=== PATIENT | female | born 1970 | race Caucasian/White ===

== ENCOUNTER 2019-05-22 18:01 | Emergency (ER) | payer BC ==
[2019-05-22 18:16] VITALS: BP 158/82; PULSE 78; RESP 20; TEMP 98.4
[2019-05-22] MEDS ORDERED: diphenhydrAMINE 50 MG/ML 1 ML VIAL IM STA (18:54)
[2019-05-22] MEDS ORDERED: methylPREDNISolone SOD SUCCI 125 MG/2 ML VIAL IM ONE (18:54)
--- NOTE | 2019-05-22 19:04 | ED ---
Skin/Abscess/FB HPI - General Chief complaint: Skin/Abscess/Foreign Body Stated complaint: Rash Time Seen by Provider: 05/22/19 18:24 Source: patient Mode of arrival: ambulatory Limitations: no limitations - History of Present Illness Initial comments: Patient is a 49-year-old female presenting to the emergency Department with complaints of a generalized rash that started yesterday. Patient states she noticed a rash start on her back and has progressed to her trunk, upper extremities and beginning on her lower extremities. Patient states she went to her PCP earlier today and received a steroid injection and was given a prescription for steroids to start tomorrow. Patient states she also took some Benadryl earlier this morning without relief of symptoms. Patient states she has been on losartan for years however this last refill, 3 days ago, was from a different senior litigation paralegal. This is the only thing that has different in the last few days. Patient was told to stop the medication until they can get reorder from a different senior litigation paralegal. Patient denies any new lotions, soaps, detergents. Patient has no other complaints at this time. Patient denies fever, chills, abdominal pain, chest pain, shortness of breath. Upon arrival to ER, vital signs are stable. - Related Data Allergies Allergy/AdvReac Type Severity Reaction Status Date / Time No Known Allergies Allergy Verified 05/22/19 18:16 Review of Systems ROS Statement: Those systems with pertinent positive or pertinent negative responses have been documented in the HPI. ROS Other: All systems not noted in ROS Statement are negative. Past Medical History Past Medical History: GERD/Reflux, Hyperlipidemia, Hypertension, Thyroid Disorder Additional Past Medical History / Comment(s): IBS History of Any Multi-Drug Resistant Organisms: None Reported Past Surgical History: Ablation, Section, Cholecystectomy Past Psychological History: No Psychological Hx Reported Smoking Status: Never smoker Past Alcohol Use History: Rare Past Drug Use History: None Reported General Exam - General Exam Comments Initial Comments: GENERAL: Well-appearing, well-nourished and in no acute distress. HEAD: Atraumatic, normocephalic. EYES: Pupils equal round and reactive to light, extraocular movements intact, sclera anicteric, conjunctiva are normal. ENT: TMs normal, nares patent, oropharynx clear without exudates. Moist mucous membranes. NECK: Normal range of motion, supple without lymphadenopathy or JVD. LUNGS: Breath sounds clear to auscultation bilaterally and equal. No wheezes rales or rhonchi. HEART: Regular rate and rhythm without murmurs, rubs or gallops. ABDOMEN: Soft, nontender, normoactive bowel sounds. No guarding, no rebound. No masses appreciated. : Deferred EXTREMITIES: Normal range of motion, no pitting or edema. No clubbing or cyanosis. NEUROLOGICAL: Cranial nerves II through XII grossly intact. Normal speech, normal gait. PSYCH: Normal mood, normal affect. SKIN: Warm, Dry, normal turgor. Patient has a generalized macular papular erythematous rash to her trunk and upper extremities, also beginning on her upper lower extremities. Consistent with an ALLERGIC response. Limitations: no limitations Course Vital Signs 05/22/19 18:12 Temperature 98.4 F Pulse Rate 78 Respiratory 20 Rate Blood Pressure 158/82 O2 Sat by Pulse 100 Oximetry Medical Decision Making - Medical Decision Making Patient is a 49-year-old female presenting with a generalized macular papular rash on her trunk and upper extremities. This is consistent with an ALLERGIC response to possible a different senior litigation paralegal of her losartan medication. Vitals are stable. Patient denies fever, chills, chest pain, trouble breathing. Patient will be given 125 mg solu-Medrol as well as 50 mg of Benadryl. Patient will also continue with Medrol Dosepak as prescribed by her PCP tomorrow. Patient has DC'd medication. Patient will follow up with her PCP tomorrow as needed. Patient is stable for discharge at this time. Return parameters were discussed with the patient she verbalized understanding. Disposition Clinical Impression: Allergic reaction to drug Disposition: HOME SELF-CARE Condition: Stable Instructions (If sedation given, give patient instructions): Acute Rash (ED) Additional Instructions: Please return to the Emergency Department if symptoms worsen or any other concerns. Start Steroid Dosepak tomorrow as discussed. Follow up with PCP if symptoms persist after 2-3 days. Is patient prescribed a controlled substance at d/c from ED?: No Referrals: Pina Lee DO [Primary Care Provider] - 1-2 days
== END 2019-05-22 19:31 | disposition home or self-care (01) ==
LOC: EC 18:01
DX: R21 Rash and other nonspecific skin eruption (principal); T46.5X5A Adverse effect of other antihypertensive drugs, initial encounter
CPT/HCPCS: 99282; 96372 ×2; J1200; J2930

== ENCOUNTER → 2021-01-19 | Outpatient (CLI) | payer BC ==
[2021-01-19 14:28] VITALS: BP 144/86; PULSE 89; RESP 18; TEMP 97.1; BMI 40.2
--- NOTE | 2021-01-27 12:35 | P.HPBAR ---
Bariatric H&P - History & Physicial H&P Date: 01/19/21 History & Physicial: Visit/CC: initial visit Patient initial contact: Initial weight: Initial weight in pounds: Height: 5 ft 3.5 in Initial BMI: Last weight: Current weight: 104.78 kg Current weight in pounds: 231.00 Current BMI: 40.2 [place] body weight (based on NIH guidelines): 53.297 kg Excess body weight loss: The patient is a 50 year-old F who presents for Bariatric Assessment. Patient presents today for sleeve gastrectomy consultation. She is morbidly obese. Her BMI is 40. She has had lifetime problems obesity. Patient developed severe comorbidities related to morbid obesity. Past Medical History Past Medical History: Diabetes Mellitus, GERD/Reflux, Hyperlipidemia, Hypertension, Thyroid Disorder Additional Past Medical History / Comment(s): DM II. IBS. overactive bladder. History of Any Multi-Drug Resistant Organisms: None Reported Past Surgical History: Ablation, Section, Cholecystectomy, Tubal Ligation, Uterine Ablation Additional Past Surgical History / Comment(s): 2007 - US needle core left breast biopsy, benign fibroid cyst. 2020 - lasik eye surgery. 2020 - US guided left breast biopsy, benign fibroid cyst. Past Anesthesia/Blood Transfusion Reactions: No Reported Reaction Past Psychological History: No Psychological Hx Reported Smoking Status: Never smoker Past Alcohol Use History: Rare Past Drug Use History: None Reported Surgical - Exam Vital Signs Temp Pulse Resp BP 97.1 F L 89 18 144/86 01/19/21 14:17 01/19/21 14:17 01/19/21 14:17 01/19/21 14:17 - General well developed, well nourished, no distress - Eyes PERRL - ENT normal pinna - Neck no masses - Respiratory normal expansion - Cardiovascular Rhythm: regular - Abdomen Abdomen: soft, non tender Bariatric Assessment & Plan Plan: Morbid obesity. Patient will undergo workup for sleeve yesterday. She is scheduled for EGD. Patient is an excellent understanding of the gastric sleeve. She'll wear the risk of gastric staple line disruption, bleeding and scarring. Bariatric Checklist Checklist: Plan: Checklist: EGD: 1. Hiatal hernia: 2. H. Pylori: HgbA1c: Vitamin D: Smoking: Never smoker Primary care physician referral: SHABANA Hernandez Psychiatry clearance: Cardiology clearance: Sleep study: Diet journal: VTE risk score: VTE risk level: Rehab needs at discharge:
== END ==
LOC: BARWHC3 13:53
PROVIDERS: ATTEND Surgery
DX: E66.01 Morbid (severe) obesity due to excess calories (principal); E11.9 Type 2 diabetes mellitus without complications; E78.5 Hyperlipidemia, unspecified; I10 Essential (primary) hypertension; Z68.41 Body mass index [BMI] 40.0-44.9, adult
CPT/HCPCS: 93005; 99203

== ENCOUNTER 2021-04-23 06:50 | Day surgery (SDC) | payer BC ==
[2021-04-21 16:05] VITALS: BMI 41.1
[~2021-04-23 06:50] MED LIST: LACTATED RINGERS 1,000 ML IV SCH
[2021-04-23 07:18] VITALS: TEMP 98.5
[2021-04-23] MEDS ORDERED: LIDOCAINE 1% (10MG/ML) FOR IV START INTRADERMA ONE (07:24)
[2021-04-23] MEDS ORDERED: PROPOFOL 10 MG/ML 20 ML VIAL IV ONE (08:03)
--- NOTE | 2021-04-23 08:06 | P.GSHP ---
History of Present Illness H&P Date: 04/23/21 Chief Complaint: GERDMorbid obesity This a 49-year-old female for sleeve gastrectomy. Patient's had issues with GERD. She is morbidly obese. Her BMI is 41. Past Medical History Past Medical History: Diabetes Mellitus, GERD/Reflux, Hyperlipidemia, Hypertension, Thyroid Disorder Additional Past Medical History / Comment(s): DM II. IBS. overactive bladder. History of Any Multi-Drug Resistant Organisms: None Reported Past Surgical History: Breast Surgery, Section, Cholecystectomy, Tubal Ligation, Uterine Ablation Additional Past Surgical History / Comment(s): 2007 - US needle core left breast biopsy, benign fibroid cyst. 2020 - lasik eye surgery. 2020 - US guided left breast biopsy, benign fibroid cyst. Past Anesthesia/Blood Transfusion Reactions: No Reported Reaction Smoking Status: Never smoker - Past Family History Mother Family Medical History: No Reported History Medications and Allergies Home Medications Medication Instructions Recorded Confirmed Type Atorvastatin [Lipitor] 40 mg PO HS 01/19/21 04/23/21 History Colestipol HCl [Colestid] 1 tab PO DAILY 01/19/21 04/23/21 History Furosemide [Lasix] 20 mg PO DAILY 01/19/21 04/23/21 History Levothyroxine Sodium [Synthroid] 50 mcg PO DAILY 01/19/21 04/23/21 History Liothyronine Sodium [Cytomel] 25 mcg PO DAILY 01/19/21 04/23/21 History Metoprolol Succinate [Toprol XL] 200 mg PO BID 01/19/21 04/23/21 History Omeprazole [PriLOSEC] 20 mg PO AC-BRKFST 01/19/21 04/23/21 History Potassium Chloride [Klor-Con 20] 20 meq PO DAILY 01/19/21 04/23/21 History Semaglutide [Rybelsus] 7 mg PO DAILY 01/19/21 04/23/21 History Valsartan/Hydrochlorothiazide 1 tab PO DAILY 01/19/21 04/23/21 History [Diovan Hct 160-25 mg Tablet] amLODIPine [Norvasc] 5 mg PO HS 01/19/21 04/23/21 History Cholecalciferol (Vitamin D3) 125 mcg PO DAILY 04/21/21 04/23/21 History [Vitamin D3 (3000 Iu)] Multivitamins, Thera [Multivitamin 1 tab PO DAILY 04/21/21 04/23/21 History (formulary)] Allergies Allergy/AdvReac Type Severity Reaction Status Date / Time No Known Allergies Allergy Verified 04/21/21 15:30 Surgical - Exam Vital Signs Temp Pulse Resp BP Pulse Ox 98.5 F 90 16 161/78 97 04/23/21 07:14 04/23/21 07:14 04/23/21 07:14 04/23/21 07:14 04/23/21 07:14 - General well developed, well nourished, no distress - Eyes PERRL - ENT normal pinna - Neck no masses - Respiratory normal expansion - Cardiovascular Rhythm: regular - Abdomen Abdomen: soft, non tender Assessment and Plan Assessment: GERD, morbid obesity. We'll perform EGD.
--- NOTE | 2021-04-23 08:13 | P.OP ---
Date of Procedure: 04/23/21 Preoperative Diagnosis: GERD Morbid obesity Postoperative Diagnosis: Antral gastritis Procedure(s) Performed: EGD Anesthesia: MAC Surgeon: Marino Womack Pathology: other (Antrum) Condition: stable Disposition: PACU Description of Procedure: Patient's placed on the endoscopy table lateral position. She received IV sedation. The gastroscope placed oropharynx passed in the esophagus and stomach. Scope was then placed through the pylorus. First and second portion of the duodenum appeared normal. Scope summer back the antrum this. Mildly inflamed. A biopsies performed. Scope was unretroflexed and remainder stomach appeared normal. The GE junction was at 40 cm the distal esophagus appeared n ormal. The proximal esophagus appeared normal. Scope withdrawn for patient.
[2021-04-23 08:35] VITALS: BP 127/76; PULSE 84; RESP 18
== END 2021-04-23 08:56 | disposition home or self-care (01) ==
LOC: ORWHC2ENDO 06:50
PROVIDERS: ATTEND Surgery
DX: K29.50 Unspecified chronic gastritis without bleeding (principal); K58.9 Irritable bowel syndrome, unspecified; K21.9 Gastro-esophageal reflux disease without esophagitis; I10 Essential (primary) hypertension; E78.5 Hyperlipidemia, unspecified; E11.9 Type 2 diabetes mellitus without complications; E66.01 Morbid (severe) obesity due to excess calories; Z68.41 Body mass index [BMI] 40.0-44.9, adult; Z90.49 Acquired absence of other specified parts of digestive tract; Z79.899 Other long term (current) drug therapy
CPT/HCPCS: 43239; 81025; 88305; J2704

== ENCOUNTER → 2021-05-11 | Outpatient (CLI) | payer BC ==
[2021-05-11 15:37] VITALS: BP 135/82; PULSE 87; TEMP 98.2; BMI 40.8
--- NOTE | 2021-05-11 15:52 | P.HPBAR ---
Bariatric H&P - History & Physicial H&P Date: 05/11/21 History & Physicial: Visit/CC: egd follow up Patient initial contact: Initial weight: Initial weight in pounds: Height: 5 ft 3.5 in Initial BMI: Last weight: Current weight: 106.141 kg Current weight in pounds: 234.00 Current BMI: 40.8 [place] body weight (based on NIH guidelines): 53.297 kg Excess body weight loss: The patient is a 51 year-old F who presents for Bariatric Assessment. Patient presents today for presurgical consultation. She wants to be scheduled for sleeve visit in August. She is Understanding significant history. Her BMI is 41. Past Medical History Past Medical History: Diabetes Mellitus, GERD/Reflux, Hyperlipidemia, Hypertension, Thyroid Disorder Additional Past Medical History / Comment(s): DM II. IBS. overactive bladder. History of Any Multi-Drug Resistant Organisms: None Reported Past Surgical History: Breast Surgery, Section, Cholecystectomy, Tubal Ligation, Uterine Ablation Additional Past Surgical History / Comment(s): 2007 - US needle core left breast biopsy, benign fibroid cyst. 2020 - lasik eye surgery. 2020 - US guided left br east biopsy, benign fibroid cyst. Past Anesthesia/Blood Transfusion Reactions: No Reported Reaction Past Psychological History: No Psychological Hx Reported Smoking Status: Never smoker Past Alcohol Use History: Rare Past Drug Use History: None Reported - Past Family History Mother Family Medical History: No Reported History Surgical - Exam Vital Signs Temp Pulse BP 98.2 F 87 135/82 05/11/21 15:35 05/11/21 15:35 05/11/21 15:35 - General well developed, well nourished, no distress - Eyes PERRL - ENT normal pinna - Neck no masses - Respiratory normal expansion - Cardiovascular Rhythm: regular - Abdomen Abdomen: soft, non tender Bariatric Assessment & Plan Plan: Morbid obesity. Patient will be scheduled for sleeve gastrectomy in August. She has an excellent understanding of procedure. Bariatric Checklist Checklist: Plan: Checklist: EGD: 1. Hiatal hernia: 2. H. Pylori: HgbA1c: Vitamin D: Smoking: Never smoker Primary care physician referral: SHABANA Hernandez Psychiatry clearance: Cardiology clearance: Sleep study: Diet journal: VTE risk score: VTE risk level: Rehab needs at discharge:
== END ==
LOC: BARWHC3 14:53
PROVIDERS: ATTEND Surgery
DX: E66.01 Morbid (severe) obesity due to excess calories (principal); Z68.41 Body mass index [BMI] 40.0-44.9, adult; E11.9 Type 2 diabetes mellitus without complications; E78.5 Hyperlipidemia, unspecified; I10 Essential (primary) hypertension; Z79.899 Other long term (current) drug therapy; Z79.84 Long term (current) use of oral hypoglycemic drugs
CPT/HCPCS: 99211

== ENCOUNTER → 2021-05-25 | Outpatient (CLI) | payer BC ==
[2021-05-25 12:36] VITALS: BMI 41.6
== END ==
LOC: BARWHC3 08:40
PROVIDERS: ATTEND Surgery
DX: E66.01 Morbid (severe) obesity due to excess calories (principal); Z71.3 Dietary counseling and surveillance; Z68.41 Body mass index [BMI] 40.0-44.9, adult
CPT/HCPCS: 97804

== ENCOUNTER → 2021-07-27 | Outpatient (CLI) | payer BC ==
[2021-07-27 13:35] VITALS: BP 137/86; PULSE 69; TEMP 97.8; BMI 41.3
--- NOTE | 2021-07-27 14:57 | P.HPBAR ---
Bariatric H&P - History & Physicial H&P Date: 07/27/21 History & Physicial: Visit/CC: presurgical visit Patient initial contact: Initial weight: Initial weight in pounds: Height: 5 ft 3.5 in Initial BMI: Last weight: Current weight: 107.501 kg Current weight in pounds: 237.00 Current BMI: 41.3 [place] body weight (based on NIH guidelines): 53.297 kg Excess body weight loss: The patient is a 51 year-old F who presents for Bariatric Assessment. Patient presents today for presurgical consultation. She appears scheduled for surgery next month. She is morbidly obese. Her BMI is 41. Past Medical History Past Medical History: Diabetes Mellitus, GERD/Reflux, Hyperlipidemia, Hypertension, Thyroid Disorder Additional Past Medical History / Comment(s): DM II. IBS. overactive bladder. History of Any Multi-Drug Resistant Organisms: None Reported Past Surgical History: Breast Surgery, Section, Cholecystectomy, Tubal Ligation, Uterine Ablation Additional Past Surgical History / Comment(s): 2007 - US needle core left breast biopsy, benign fibroid cyst. 2020 - lasik eye surgery. 2020 - US guided left breast biopsy, benign fibroid cyst. Past Anesthesia/Blood Transfusion Reactions: No Reported Reaction Past Psychological History: No Psychological Hx Reported Smoking Status: Never smoker Past Alcohol Use History: Rare Past Drug Use History: None Reported - Past Family History Mother Family Medical History: No Reported History Surgical - Exam Vital Signs Temp Pulse BP 97.8 F 69 137/86 07/27/21 13:33 07/27/21 13:33 07/27/21 13:33 - General well developed, well nourished, no distress - Eyes PERRL - ENT normal pinna - Neck no masses - Respiratory normal expansion - Cardiovascular Rhythm: regular - Abdomen Abdomen: soft, non tender Bariatric Assessment & Plan Plan: Morbid obesity, BMI of 41. Patient is an excellent understanding of sleeve yesterday. She was scheduled for sleeve gastrectomy next month. We will over the risks and Patient procedure again. Bariatric Checklist Checklist: Plan: Checklist: EGD: 1. Hiatal hernia: 2. H. Pylori: HgbA1c: Vitamin D: Smoking: Never smoker Primary care physician referral: SHABANA Hernandez Psychiatry clearance: Cardiology clearance: Sleep study: Diet journal: VTE risk score: VTE risk level: Rehab needs at discharge:
== END ==
LOC: BARWHC3 12:55
PROVIDERS: ATTEND Surgery
DX: E66.01 Morbid (severe) obesity due to excess calories (principal); E11.9 Type 2 diabetes mellitus without complications; E78.5 Hyperlipidemia, unspecified; I10 Essential (primary) hypertension; Z68.41 Body mass index [BMI] 40.0-44.9, adult
CPT/HCPCS: 99211

== ENCOUNTER 2021-08-31 07:26 | Inpatient (IN) | payer BC ==
[~2021-08-31 07:26] MED LIST changes: +DEXAMETHASONE SOD PHOSPHATE 4 MG/ML 1 ML VIAL IV ONE; +ENOXAPARIN 40 MG/0.4 ML SYRINGE SQ PRN; -LACTATED RINGERS 1,000 ML IV SCH; +MIDAZOLAM 2 MG/2 ML VIAL IV PRN; +ONDANSETRON 4 MG/2 ML VIAL IVP ONE; +SCOPOLAMINE 1.5MG/72HR PATCH TRANSDERM ONE
[2021-08-31] MEDS ORDERED: LACTATED RINGERS 1,000 ML IV ONE ×2 (08:04→10:14)
[2021-08-31 08:06] LABS: Glucose,Whole Blood 120 mg/dL (75-99)
[2021-08-31] MEDS ORDERED: ONDANSETRON 4 MG/2 ML VIAL IVP ONE ×2 (08:07→11:34)
[2021-08-31] MEDS ORDERED: DEXAMETHASONE SOD PHOSPHATE 4 MG/ML 1 ML VIAL IVP ONE (08:08)
[2021-08-31] MEDS ORDERED: SCOPOLAMINE 1.5MG/72HR PATCH TRANSDERM ONE (08:09)
--- NOTE | 2021-08-31 08:42 | P.GSHP ---
History of Present Illness H&P Date: 08/31/21 Chief Complaint: Morbid obesity BMI 40 This is a 51-year-old female presents today for laparoscopic sleeve gastrectomy. Patient understands risks and benefits of the procedure. He is aware the risks and possible conversion to the open procedure and injury to the stomach liver or spleen. She is also a risk of gastric sleeve perforation, bleeding and scarring. Past Medical History Past Medical History: Diabetes Mellitus, GERD/Reflux, Hyperlipidemia, Hypertension, Thyroid Disorder Additional Past Medical History / Comment(s): DM II. IBS. overactive bladder. History of Any Multi-Drug Resistant Organisms: None Reported Past Surgical History: Breast Surgery, Section, Cholecystectomy, Tubal Ligation, Uterine Ablation Additional Past Surgical History / Comment(s): 2007 - US needle core left breast biopsy, benign fibroid cyst. 2020 - lasik eye surgery. 2020 - US guided left breast biopsy, benign fibroid cyst. Past Anesthesia/Blood Transfusion Reactions: No Reported Reaction Smoking Status: Never smoker - Past Family History Mother Family Medical History: No Reported History Medications and Allergies Home Medications Medication Instructions Recorded Confirmed Type Atorvastatin [Lipitor] 40 mg PO HS 01/19/21 08/31/21 History Colestipol HCl [Colestid] 1 gm PO DAILY 01/19/21 08/31/21 History Furosemide [Lasix] 20 mg PO DAILY PRN 01/19/21 08/31/21 History Liothyronine Sodium [Cytomel] 25 mcg PO DAILY 01/19/21 08/31/21 History Metoprolol Succinate [Toprol XL] 200 mg PO BID 01/19/21 08/31/21 History Omeprazole [PriLOSEC] 20 mg PO AC-BRKFST 01/19/21 08/31/21 History Potassium Chloride [Klor-Con 20] 20 meq PO DAILY 01/19/21 08/31/21 History Semaglutide [Rybelsus] 7 mg PO DAILY 01/19/21 08/31/21 History Valsartan/Hydrochlorothiazide 1 tab PO DAILY 01/19/21 08/31/21 History [Diovan Hct 160-25 mg Tablet] amLODIPine [Norvasc] 5 mg PO HS 01/19/21 08/31/21 History Cholecalciferol (Vitamin D3) 125 mcg PO DAILY 04/21/21 08/31/21 History [Vitamin D3 (3000 Iu)] Multivitamins, Thera [Multivitamin 1 tab PO DAILY 04/21/21 08/31/21 History (formulary)] Allergies Allergy/AdvReac Type Severity Reaction Status Date / Time No Known Allergies Allergy Verified 08/21/21 08:43 Surgical - Exam Vital Signs Temp Pulse Resp BP Pulse Ox 97.7 F 77 16 151/77 99 08/31/21 07:51 08/31/21 07:51 08/31/21 07:51 08/31/21 07:51 08/31/21 07:51 - General well developed, well nourished, no distress - Eyes PERRL - ENT normal pinna - Neck no masses - Respiratory normal expansion - Cardiovascular Rhythm: regular - Abdomen Abdomen: soft, non tender Results - Labs Abnormal Lab Results - Last 24 Hours (Table) 08/31/21 Range/Units 08:02 POC Glucose (mg/dL) 120 H (75-99) mg/dL Assessment and Plan Assessment: Morbid obesity. We'll perform sleeve gastrectomy.
[2021-08-31] MEDS ORDERED: fentaNYL (PF) 50 MCG/ML 2 ML AMP ONE (08:51)
[2021-08-31] MEDS ORDERED: ROCURONIUM 10 MG/ML (5 ML VIAL) IV ONE (08:51)
[2021-08-31] MEDS ORDERED: NEOSTIGMINE 1 MG/ML 10 ML VIAL ONE (08:51)
[2021-08-31] MEDS ORDERED: PROPOFOL 10 MG/ML 20 ML VIAL IV ONE (08:51)
[2021-08-31] MEDS ORDERED: KETOROLAC 15 MG/ML 1 ML VIAL ONE (08:51)
[2021-08-31] MEDS ORDERED: KETAMINE 10 MG/ML 20 ML VIAL ONE (08:51)
[2021-08-31] MEDS ORDERED: LIDOCAINE 1% INJ 10MG/ML (20 ML MDV) ONE (08:51)
[2021-08-31] MEDS ORDERED: MIDAZOLAM 2 MG/2 ML VIAL ONE (08:51)
[2021-08-31] MEDS ORDERED: GLYCOPYRROLATE 0.2 MG/ML 2 ML VIAL ONE (08:51)
[2021-08-31] MEDS ORDERED: SUCCINYLCHOLINE CHLORIDE 100 MG/5 ML SYR IV ONE (08:51)
[2021-08-31] MEDS ORDERED: ePHEDrine 50 MG/ML 1 ML AMP ONE (08:51)
[2021-08-31] MEDS ORDERED: BUPIVACAIN-EPI 0.25%-1:200,000 30 ML VIAL SQ ONE (09:20)
[2021-08-31] MEDS ORDERED: HYDROcodone/APAP 15 ML SOLUTION PO PRN (10:32)
[2021-08-31] MEDS ORDERED: HYDROmorphone 1 MG/ML 1 ML SYRINGE IVP PRN (10:32)
[2021-08-31] MEDS ORDERED: NALOXONE 0.4 MG/ML 1 ML VIAL IV PRN (10:32)
--- NOTE | 2021-08-31 10:32 | P.OP ---
Date of Procedure: 08/31/21 Preoperative Diagnosis: Morbid obesity, BMI 40 Postoperative Diagnosis: Same Procedure(s) Performed: Laparoscopic sleeve gastrectomy Anesthesia: THANH Surgeon: Marino Womack Estimated Blood Loss (ml): 25 Pathology: other (Stomach) Condition: stable Disposition: PACU Description of Procedure: The patient was placed on the operating room table in the supine position. She received general anesthesia and then was placed in dorsal lithotomy position. Her abdomen was prepped and draped in sterile fashion. The skin incision sites were anesthetized 1% local Xylocaine. And then the skin was incised with an 11 blade in the left lateral position. Using a blade less trocar under direct visualization the peritoneal cavity was entered. The abdomen was insufflated and then a 5 mm laparoscope was placed into the peritoneal cavity. A 5 mm trocar was placed in the right epigastric, and right lateral position. A 15 mm trocar was placed in the supra-umbilical position and another 5 mm trocar was placed in the left lateral position. The left lateral lobe of the liver was retracted. The stomach was visualized. The greater curvature of the stomach was then dissected using the Harmonic scissors. The dissection occurred approximately 5 cm from the pylorus to the level of the left astrid. There was no hiatal hernia seen. At this point a 40-Citizen [place] bougie dilator was placed the oropharynx and passed into the esophagus and into the stomach by the ASSISTANT BRANCH MANAGER. The sleeve gastrectomy was performed by using the powered echelon stapler with a seam guard buttress material. Sequential firings of the stapler were performed. The gastric remnant was then brought out through the 15 mm trocar site. The dilator was withdrawn. And a orogastric tube was replaced into the stomach. The stomach was insufflated with 200 mL of methylene blue normal saline. There was no evidence of extravasation. The abdomen was irrigated there is no bleeding seen. The Jb-[place] device was used to close the 15 mm trocar with 0 Vicryl. Skin was closed with interrupted 3-0 Monocryl sutures once the trochars withdrawn. Dermabond dressing was applied. Patient was sent to recovery in stable condition.
[2021-08-31] MEDS: HYDROmorphone 0.5 MG/0.5 ML SYRINGE IVP PRN ×4 (10:58→15:00)
[2021-08-31 11:23] LABS: Glucose,Whole Blood 186 mg/dL (75-99)
[2021-08-31] MEDS ORDERED: INSULIN ASPART (NovoLOG) 100 UNIT/ML VIAL SQ ONE (11:26)
[2021-08-31] MEDS ORDERED: SODIUM CHLORIDE 0.9% 1,000 ML IV ONE (16:18)
[2021-08-31 17:28] LABS: Glucose,Whole Blood 123 mg/dL (75-99)
[2021-08-31] MEDS: ALBUTEROL NEBULIZED 2.5 MG/3 ML INHALATION SCH ×2 (17:48→21:39)
[2021-08-31] MEDS: LACTATED RINGERS 1,000 ML IV SCH (18:29)
[2021-08-31] MEDS: KETOROLAC 30 MG/ML 1 ML VIAL IVP SCH ×2 (18:37→23:59)
[2021-08-31 19:37] LABS: Glucose,Whole Blood 112 mg/dL (75-99)
[2021-08-31] MEDS: 0.9% NACL WITH KCL 20 MEQ/L 1,000 ML IV SCH (21:06)
[2021-09-01] MEDS: 0.9% NACL WITH KCL 20 MEQ/L 1,000 ML IV SCH ×2 (01:41→09:30)
[2021-09-01] MEDS: LACTATED RINGERS 1,000 ML IV SCH (06:01)
[2021-09-01] MEDS: KETOROLAC 30 MG/ML 1 ML VIAL IVP SCH ×4 (06:05→22:54)
[2021-09-01] MEDS: ALBUTEROL NEBULIZED 2.5 MG/3 ML INHALATION SCH ×4 (08:36→20:32)
--- NOTE | 2021-09-01 08:57 | FL ---
EXAMINATION TYPE: FL UGI DATE OF EXAM: 09/01/2021 LIMITED UGI: CLINICAL HISTORY: Morbid Obesity, gastric sleeve surgery yesterday. TECHNIQUE: Limited UGI-esophagram is performed utilizing 50 oz of Isovue-370. A total of 1 minute 32 seconds of fluoroscopic time was utilized during procedure and 38 images obtained. COMPARISON: None. FINDINGS: The patient swallowed contrast without difficulty or delay. Esophageal peristalsis and mo tility are within normal limits. There is good flow of contrast across the diaphragmatic hiatus into proximal stomach and subsequent mild delay in flow through proximal anastomosis into gastric sleeve. There is then moderate to borderline severe delay in flow from distal sleeve and anastomosis into py lorus and duodenal sweep. There is constant reflux of contrast from gastric sleeve and proximal stoma ch back into esophagus where there is persistent air-fluid level. Patient has symptoms of nausea and occasional pain but no vomiting. There is no evidence of contrast extravasation to suggest leak. Chol ecystectomy clips are incidentally noted from remote surgery. Tiny amount of free air below right hem idiaphragm is seen. IMPRESSION: No evidence of leak. Moderate obstruction at distal anastomosis. Took approximately 8 min utes from drinking until contrast passed through distal anastomosis.
[2021-09-01] MEDS: METOPROLOL SUCCINATE (ER) 100 MG TAB.ER.24H PO SCH ×2 (09:30→19:58)
[2021-09-01] MEDS: PANTOPRAZOLE 40 MG/10 ML VIAL IV SCH (09:30)
[2021-09-01] MEDS: ENOXAPARIN 40 MG/0.4 ML SYRINGE SQ SCH (09:31)
[2021-09-01] MEDS: LIOTHYRONINE SODIUM 5 MCG TAB PO SCH (09:32)
[2021-09-01 09:55] LABS: Anion Gap 13.7 mmol/L (10.00-18.00); Carbon Dioxide 24.3 mmol/L (20.0-27.5); Potassium 3.2 mmol/L (3.5-5.5)
[2021-09-01 10:28] LABS: African American GFR (CKD) 123.2 (60.0-200.0); Calcium 8.6 mg/dL (8.7-10.3); Non-African American GFR(CKD) 106.3 (60.0-200.0); Phosphorus 2.4 mg/dL (2.4-5.1)
[2021-09-01 11:19] LABS: Basophils # (A) 0.04 X 10*3/uL (0.00-0.10); Basophils % (A) 0.4 %; Eosinophils # (A) 0.01 X 10*3/uL (0.04-0.35); Eosinophils % (A) 0.1 %; HCT 35.1 % (37.2-46.3); HGB 11.3 g/dL (12.0-15.0); Lymphocytes # (A) 1.68 X 10*3/uL (0.90-5.00); Lymphocytes % (A) 17.2 %; MCH 28.5 pg (27.0-32.0); MCHC 32.2 g/dL (32.0-37.0); MCV 88.4 fL (80.0-97.0); Mean Platelet Volume 13.5 fL (9.5-12.2); Monocytes # (A) 0.83 X 10*3/uL (0.20-1.00); Monocytes % (A) 8.5 %; Neutrophils # (A) 7.16 X 10*3/uL (1.80-7.70); Neutrophils % (A) 73.5 %; Platelet Count 232 X 10*3/uL (140-440); RBC 3.97 X 10*6/uL (4.10-5.20); RDW 12.9 % (11.5-14.5); WBC 9.75 X 10*3/uL (4.50-10.00)
[2021-09-01] MEDS ORDERED: Potassium Replacement Protocol 1 EACH MISC MISCELLANE PRN (12:05)
[2021-09-01] MEDS ORDERED: Magnesium Replacement Protocol 1 EACH MISC MISCELLANE PRN (12:16)
--- NOTE | 2021-09-01 12:18 | P.CONS ---
History of Present Illness - Reason for Consult Consult date: 09/01/21 Medical management diabetes mellitus, gastroesophageal reflux disease, hype Requesting physician: Marino Womack - Chief Complaint Obesity, status post laparoscopic sleeve gastrectomy - History of Present Illness This is a 51-year-old female with past medical history of morbid obesity, diabetes mellitus type 2, gastroesophageal reflux disease, hypertension, hyperlipidemia, hypothyroidism and multiple other medical issues. Patient is status post laparoscopic sleeve gastrectomy, postop day 1. Tolerated procedure well. Complains of lower bilateral quadrant abdominal pain, radiating from left to right. Reports burping with no bowel movement, not passing flatus. He ambulated in the hallway last night, tolerated exertion well. Maintain on IV fluid hydration. NPO,completed upper GI series this morning, results pending. Blood sugars controlled. Systolic blood pressure in the low 1teens. Afebrile, normal WBC. Hemoglobin 11.3, platelets 232. Potassium 3.2 replacement supplements ordered. Review of Systems ROS Statement: Those systems with pertinent positive or pertinent negative responses have been documented in the HPI. ROS Other: All systems not noted in ROS Statement are negative. Past Medical History Past Medical History: No Reported History, Diabetes Mellitus, GERD/Reflux, Hyperlipidemia, Hypertension, Thyroid Disorder Additional Past Medical History / Comment(s): DM II. IBS. overactive bladder. History of Any Multi-Drug Resistant Organisms: None Reported Past Surgical History: Breast Surgery, Section, Cholecystectomy, Tubal Ligation, Uterine Ablation Additional Past Surgical History / Comment(s): 2007 - US needle core left breast biopsy, benign fibroid cyst. 2020 - lasik eye surgery. 2020 - US guided left breast biopsy, benign fibroid cyst. Past Anesthesia/Blood Transfusion Reactions: No Reported Reaction Past Psychological History: No Psychological Hx Reported Smoking Status: Never smoker Past Alcohol Use History: Rare Past Drug Use History: None Reported - Past Family History Mother Family Medical History: No Reported History Medications and Allergies Home Medications Medication Instructions Recorded Confirmed Type Atorvastatin [Lipitor] 40 mg PO HS 01/19/21 08/31/21 History Colestipol HCl [Colestid] 1 gm PO DAILY 01/19/21 08/31/21 History Furosemide [Lasix] 20 mg PO DAILY PRN 01/19/21 08/31/21 History Liothyronine Sodium [Cytomel] 25 mcg PO DAILY 01/19/21 08/31/21 History Metoprolol Succinate [Toprol XL] 200 mg PO BID 01/19/21 08/31/21 History Omeprazole [PriLOSEC] 20 mg PO AC-BRKFST 01/19/21 08/31/21 History Potassium Chloride [Klor-Con 20] 20 meq PO DAILY 01/19/21 08/31/21 History Semaglutide [Rybelsus] 7 mg PO DAILY 01/19/21 08/31/21 History Valsartan/Hydrochlorothiazide 1 tab PO DAILY 01/19/21 08/31/21 History [Diovan Hct 160-25 mg Tablet] amLODIPine [Norvasc] 5 mg PO HS 01/19/21 08/31/21 History Cholecalciferol (Vitamin D3) 125 mcg PO DAILY 04/21/21 08/31/21 History [Vitamin D3 (3000 Iu)] Multivitamins, Thera [Multivitamin 1 tab PO DAILY 04/21/21 08/31/21 History (formulary)] Allergies Allergy/AdvReac Type Severity Reaction Status Date / Time No Known Allergies Allergy Verified 08/21/21 08:43 Physical Exam Vitals: Vital Signs Temp Pulse Pulse Pulse Resp BP Pulse Ox 09/01/21 08:46 79 09/01/21 08:38 78 98 09/01/21 08:00 98.2 F 76 18 114/59 95 09/01/21 01:35 97.8 F 84 18 124/76 100 08/31/21 21:50 73 08/31/21 21:39 72 08/31/21 17:48 98 08/31/21 16:55 98 F 86 16 146/75 92 L 08/31/21 16:00 73 16 132/64 97 08/31/21 14:35 79 16 128/60 100 08/31/21 13:45 71 16 121/58 98 08/31/21 12:45 73 16 134/58 97 08/31/21 12:08 66 16 125/59 98 Intake and Output 08/31/21 09/01/21 09/01/21 22:59 06:59 14:59 Intake Total 800 Balance 800 Intake: IV 800 Other: # Voids 3 Weight 101.2 kg PHYSICAL EXAM: VITAL SIGNS: As above GENERAL: Sitting up in bed, no acute distress HEENT: Conjunctivae normal. eyes normal. NECK: No JVD. No thyroid enlargement. No LNs CARDIOVASCULAR: S1, S2 regular..No murmur RESPIRATION: Breath sounds diminished in the bases. No rhonchi or crackles. No bronchial breathing. ABDOMEN: Soft, mildly distended, tender- status post surgery. No guarding. LEGS: No edema. no swelling PSYCHIATRY: Alert and oriented X3, mood and affect normal. NERVOUS SYSTEM: Cranial N 2-12 grossly normal. Moves all 4 limbs.No focal defic its.Strength and sensation grossly intact. Skin: Warm and dry, no rash Results CBC & Chem 7: 09/01/21 05:50 09/01/21 05:50 Labs: Abnormal Lab Results - Last 24 Hours (Table) 08/31/21 08/31/21 09/01/21 Range/Units 17:26 19:36 05:50 RBC 3.97 L (4.10-5.20) X 10*6/uL Hgb 11.3 L (12.0-15.0) g/dL Hct 35.1 L (37.2-46.3) % MPV 13.5 H (9.5-12.2) fL Eosinophils # 0.01 L (0.04-0.35) X 10*3/uL Potassium (3.5-5.5) mmol/L POC Glucose (mg/dL) 123 H 112 H (75-99) mg/dL Calcium (8.7-10.3) mg/dL 09/01/21 Range/Units 05:50 RBC (4.10-5.20) X 10*6/uL Hgb (12.0-15.0) g/dL Hct (37.2-46.3) % MPV (9.5-12.2) fL Eosinophils # (0.04-0.35) X 10*3/uL Potassium 3.2 L (3.5-5.5) mmol/L POC Glucose (mg/dL) (75-99) mg/dL Calcium 8.6 L (8.7-10.3) mg/dL Assessment and Plan Assessment: Morbid obesity, BMI 39.5, status post laparoscopic sleeve gastrectomy Diabetes mellitus type 2 Gastroesophageal reflux disease Hypertension, currently borderline Hyperlipidemia Hypothyroidism Hypokalemia Plan: Continue on current medication regime ,monitoring and symptomatic treatment. Potassium replacement ordered, magnesium level ordered -pending with replacement protocol as ordered .Currently borderline blood pressure, beta amber resumed, but will hold amlodipine valsartan/hydrochlorothiazide with close monitoring of blood pressure. Aggressive pulmonary toileting with incentive spirometer reinforced. Thank you for the consult. The impression and plan of care has been dictated as directed. : I performed a history and examination of this patient, discussed the same with the dictator. I agree with the dictator's note ,documented as a scribe. Any additional findings or plans will be noted.
[2021-09-01 12:41] VITALS: BMI 39.5
--- NOTE | 2021-09-01 12:59 | P.PN ---
Subjective Progress Note Date: 09/01/21 CHIEF COMPLAINT: Morbid obesity HISTORY OF PRESENT ILLNESS: Status post laparoscopic sleeve gastrectomy, postop day #1. Patient's upper GI shows no evidence of leak. Moderate obstruction at distal anastomosis. Took approximately 8 minutes from drinking until contrast passed through distal anastomosis. Patient does feel that her liquids and pills are getting stuck when she swallows. She denies any nausea or vomiting. Denies any flatus. Reports her pain is controlled. Afebrile. WBC is 9.75 hemoglobin 11.3 platelets 232 sodium 140 potassium 3.2 creatinine 0.6 magnesium 2.0 PHYSICAL EXAM: VITAL SIGNS: Reviewed. GENERAL: Well-developed in no acute distress. HEENT: No sclera icterus. Extraocular movements grossly intact. Moist buccal mucosa. Head is atraumatic, normocephalic. ABDOMEN: Soft. Nondistended. Abdominal binder in place NEUROLOGIC: Alert and oriented. Cranial nerves II through XII grossly intact. ASSESSMENT: 1. Morbid obesity status post laparoscopic sleeve gastrectomy 2. Moderate obstruction noted on upper GI 3. Hypokalemia PLAN: -Start IV dexamethasone 4 mg IV every 6 for moderate obstruction -Start bariatric clear liquid diet -Replace potassium -Continue IV fluids -Continue pain medication as needed -Encourage patient to ambulate -Encourage patient to use incentive spirometer -Anticipate discharge tomorrow -GI prophylaxis Protonix and DVT prophylaxis Lovenox Physician 21 Dealer note has been reviewed by physician. Signing provider agrees with the documented findings, assessment, and plan of care. Objective - Vital Signs Vital signs: Vital Signs Temp 98.2 F 09/01/21 08:00 Pulse 79 09/01/21 08:46 Resp 18 09/01/21 08:00 BP 114/59 09/01/21 08:00 Pulse Ox 98 09/01/21 08:38 Intake & Output 08/31/21 09/01/21 09/01/21 18:59 06:59 18:59 Intake Total 1850 Output Total 10 Balance 1840 Weight 101.2 kg 101.2 kg Intake: IV 1850 Output: Estimated Blood Loss 10 Other: # Voids 3 - Labs CBC & Chem 7: 09/01/21 05:50 09/01/21 05:50 Labs: Abnormal Lab Results - Last 24 Hours (Table) 08/31/21 08/31/21 09/01/21 Range/Units 17:26 19:36 05:50 RBC 3.97 L (4.10-5.20) X 10*6/uL Hgb 11.3 L (12.0-15.0) g/dL Hct 35.1 L (37.2-46.3) % MPV 13.5 H (9.5-12.2) fL Eosinophils # 0.01 L (0.04-0.35) X 10*3/uL Potassium (3.5-5.5) mmol/L POC Glucose (mg/dL) 123 H 112 H (75-99) mg/dL Calcium (8.7-10.3) mg/dL 09/01/21 Range/Units 05:50 RBC (4.10-5.20) X 10*6/uL Hgb (12.0-15.0) g/dL Hct (37.2-46.3) % MPV (9.5-12.2) fL Eosinophils # (0.04-0.35) X 10*3/uL Potassium 3.2 L (3.5-5.5) mmol/L POC Glucose (mg/dL) (75-99) mg/dL Calcium 8.6 L (8.7-10.3) mg/dL
[2021-09-01] MEDS: DEXAMETHASONE SOD PHOSPHATE 4 MG/ML 1 ML VIAL IVP SCH ×3 (13:10→22:54)
[2021-09-01] MEDS: POTASSIUM CHLORIDE 10 MEQ in WATER FOR INJECTION 1 100ML.BAG IVPB SCH ×4 (13:11→16:36)
[2021-09-01 13:37] LABS: Glucose,Whole Blood 131 mg/dL (75-99)
[2021-09-01 17:00] LABS: Glucose,Whole Blood 127 mg/dL (75-99)
[2021-09-01 20:25] LABS: Glucose,Whole Blood 133 mg/dL (75-99)
[2021-09-01] MEDS ORDERED: ATORVASTATIN 40 MG TAB PO SCH (21:00)
[2021-09-02] MEDS: LACTATED RINGERS 1,000 ML IV SCH (00:06)
[2021-09-02 02:58] VITALS: BP 139/70; RESP 15; TEMP 97.6
[2021-09-02] MEDS: KETOROLAC 30 MG/ML 1 ML VIAL IVP SCH ×2 (05:15→11:17)
[2021-09-02] MEDS: DEXAMETHASONE SOD PHOSPHATE 4 MG/ML 1 ML VIAL IVP SCH ×2 (05:16→11:17)
[2021-09-02 07:02] LABS: Glucose,Whole Blood 126 mg/dL (75-99)
[2021-09-02] MEDS: ALBUTEROL NEBULIZED 2.5 MG/3 ML INHALATION SCH ×2 (09:36→12:16)
[2021-09-02] MEDS: METOPROLOL SUCCINATE (ER) 100 MG TAB.ER.24H PO SCH (10:10)
[2021-09-02] MEDS: ENOXAPARIN 40 MG/0.4 ML SYRINGE SQ SCH (10:10)
[2021-09-02] MEDS: LIOTHYRONINE SODIUM 5 MCG TAB PO SCH (10:10)
[2021-09-02] MEDS: PANTOPRAZOLE 40 MG/10 ML VIAL IV SCH (11:14)
[2021-09-02 11:27] LABS: African American GFR (CKD) 129.2 (60.0-200.0); Anion Gap 12.3 mmol/L (10.00-18.00); BUN/Creat Ratio 15.34 Ratio (12.00-20.00); Calcium 8.7 mg/dL (8.7-10.3); Magnesium 2.1 mg/dL (1.5-2.4); Non-African American GFR(CKD) 111.5 (60.0-200.0); Potassium 3.9 mmol/L (3.5-5.5)
[2021-09-02 11:53] LABS: Glucose,Whole Blood 126 mg/dL (75-99)
[2021-09-02 12:19] VITALS: PULSE 72
--- NOTE | 2021-09-02 12:59 | P.DS ---
Providers Date of admission: 08/31/21 07:26 Expected date of discharge: 09/02/21 Attending physician: Marino Womack Consults: 08/31/21 10:32 Consult Physician Routine Consulting Provider: Guy Macdonald Consult Reason/Comments: Medical management Do you want consulting provider notified?: Yes Primary care physician: SHABANA Ceballos Hospital Course: Discharge diagnosis 1. Morbid obesity status post laparoscopic sleeve gastrectomy 2. Moderate obstruction noted on upper GI 3. Hypokalemia resolved Hospital course This is a 51-year-old female with morbid obesity she is status post laparoscopic gastrectomy. Patient tolerated surgery well. Her pain is controlled. Her upper GI did show moderate obstruction. She was treated with IV dexamethasone. She is tolerating her bariatric clear liquid diet. She reports improvement in her swallowing. Her pain is controlled. She has been up and ambulating. She denies any difficulty with urinating. She is afebrile. Her incision sites are clean dry and intact. She is stable for discharge. Please refer to chart for any further details. Physician Control Electrician note has been reviewed by physician. Signing provider agrees with the documented findings, assessment, and plan of care. Patient Condition at Discharge: Stable Plan - Discharge Summary Discharge Rx Participant: No New Discharge Prescriptions: New Omeprazole [PriLOSEC] 40 mg PO DAILY #30 cap Ondansetron Odt [Zofran Odt] 4 mg PO Q8HR PRN #9 tab PRN Reason: Nausea bisacodyL [Dulcolax] 5 mg PO DAILY PRN #10 tab PRN Reason: Constipation Simethicone 40 mg/0.6 ml Drops [Mylicon Drops] 40 mg PO PCHS PRN #30 ml PRN Reason: Gas HYDROcodone/APAP 5-325MG [[place] 5-325] 1 tab PO Q6HR PRN 2 Days #5 tab PRN Reason: Pain Continue Potassium Chloride [Klor-Con 20] 20 meq PO DAILY Furosemide [Lasix] 20 mg PO DAILY PRN PRN Reason: Edema Colestipol HCl [Colestid] 1 gm PO DAILY Valsartan/Hydrochlorothiazide [Diovan Hct 160-25 mg Tablet] 1 tab PO DAILY Metoprolol Succinate [Toprol XL] 200 mg PO BID Atorvastatin [Lipitor] 40 mg PO HS Semaglutide [Rybelsus] 7 mg PO DAILY Liothyronine Sodium [Cytomel] 25 mcg PO DAILY amLODIPine [Norvasc] 5 mg PO HS Cholecalciferol (Vitamin D3) [Vitamin D3 (3000 Iu)] 125 mcg PO DAILY Multivitamins, Thera [Multivitamin (formulary)] 1 tab PO DAILY Discontinued Omeprazole [PriLOSEC] 20 mg PO AC-BRKFST Discharge Medication List Atorvastatin [Lipitor] 40 mg PO HS 01/19/21 [History] Colestipol HCl [Colestid] 1 gm PO DAILY 01/19/21 [History] Furosemide [Lasix] 20 mg PO DAILY PRN 01/19/21 [History] Liothyronine Sodium [Cytomel] 25 mcg PO DAILY 01/19/21 [History] Metoprolol Succinate [Toprol XL] 200 mg PO BID 01/19/21 [History] Potassium Chloride [Klor-Con 20] 20 meq PO DAILY 01/19/21 [History] Semaglutide [Rybelsus] 7 mg PO DAILY 01/19/21 [History] Valsartan/Hydrochlorothiazide [Diovan Hct 160-25 mg Tablet] 1 tab PO DAILY 01/19/21 [History] amLODIPine [Norvasc] 5 mg PO HS 01/19/21 [History] Cholecalciferol (Vitamin D3) [Vitamin D3 (3000 Iu)] 125 mcg PO DAILY 04/21/21 [History] Multivitamins, Thera [Multivitamin (formulary)] 1 tab PO DAILY 04/21/21 [History] HYDROcodone/APAP 5-325MG [[place] 5-325] 1 tab PO Q6HR PRN 2 Days #5 tab 09/02/21 [Rx] Omeprazole [PriLOSEC] 40 mg PO DAILY #30 cap 09/02/21 [Rx] Ondansetron Odt [Zofran Odt] 4 mg PO Q8HR PRN #9 tab 09/02/21 [Rx] Simethicone 40 mg/0.6 ml Drops [Mylicon Drops] 40 mg PO PCHS PRN #30 ml 09/02/21 [Rx] bisacodyL [Dulcolax] 5 mg PO DAILY PRN #10 tab 09/02/21 [Rx] Follow up Appointment(s)/Referral(s): Guy Macdonald MD [STAFF PHYSICIAN] - 09/03/21 9:15 am ([place] location. ) [facility] [place] [place] - 09/04/21 10:00 am (Nurse follow up) Patient Instructions/Handouts: *Surgery [facility] - Scopalamine Patch Instructions, Laparoscopic Sleeve Gastrectomy (DC) Activity/Diet/Wound Care/Special Instructions: No driving while taking [place] No lifting over 10 pounds You may shower. No soaking or tub baths for 2 weeks Very light activity until you are reevaluated at your follow up appointment with your surgeon Discharge Disposition: HOME SELF-CARE
--- NOTE | 2021-09-02 15:22 | P.PN ---
Subjective Progress Note Date: 09/02/21 This is a 51-year-old female with past medical history of morbid obesity, diabetes mellitus type 2, gastroesophageal reflux disease, hypertension, hyperlipidemia, hypothyroidism and multiple other medical issues. Patient is status post laparoscopic sleeve gastrectomy, postop day 1. Tolerated procedure well. Complains of lower bilateral quadrant abdominal pain, radiating from left to right. Reports burping with no bowel movement, not passing flatus. He ambulated in the hallway last night, tolerated exertion well. Maintain on IV fluid hydration. NPO,completed upper GI series this morning, results pending. Blood sugars controlled. Systolic blood pressure in the low 1teens. Afebrile, normal WBC. Hemoglobin 11.3, platelets 232. Potassium 3.2 replacement supplements ordered 09/02/2021 Upper GI reported moderate obstruction , maintained on IV dexamethasone. Reports her swallowing is improving and is tolerating her bariatric clear liquid diet.reports burping.Ambulating, tolerating exertion well. Pain controlled. Afebrile. Objective - Vital Signs Vital signs: Vital Signs Temp 97.6 F 09/02/21 01:42 Pulse 72 09/02/21 12:25 Resp 15 09/02/21 01:42 BP 139/70 09/02/21 01:42 Pulse Ox 94 L 09/02/21 01:42 Intake & Output 09/01/21 09/02/21 09/02/21 18:59 06:59 18:59 Weight 101.2 kg Other: # Voids 2 3 - Exam PHYSICAL EXAM: VITAL SIGNS: As above GENERAL: Alert and oriented 3, Sitting up in bed, no acute distress HEENT: Conjunctivae normal. eyes normal. NECK: Supple No JVD. CARDIOVASCULAR: S1, S2 regular.No murmur RESPIRATION:Breath sounds diminished in the bases. No rhonchi or crackles. ABDOMEN: Soft, mildly distended, tender- status post surgery. No guarding.+BS LEGS: No edema. no swelling NERVOUS SYSTEM:No focal deficits.Strength and sensation grossly intact. Skin: Warm and dry, no rash - Labs CBC & Chem 7: 09/01/21 05:50 09/02/21 06:24 Labs: Abnormal Lab Results - Last 24 Hours (Table) 09/01/21 09/01/21 09/02/21 Range/Units 16:59 20:23 06:24 BUN 8.0 L (9.0-27.0) mg/dL Creatinine 0.5 L (0.6-1.5) mg/dL Glucose 132 H (70-110) mg/dL POC Glucose (mg/dL) 127 H 133 H (75-99) mg/dL 09/02/21 09/02/21 Range/Units 07:00 11:53 BUN (9.0-27.0) mg/dL Creatinine (0.6-1.5) mg/dL Glucose (70-110) mg/dL POC Glucose (mg/dL) 126 H 126 H (75-99) mg/dL Assessment and Plan Assessment: Morbid obesity, BMI 39.5, status post laparoscopic sleeve gastrectomy Diabetes mellitus type 2 Gastroesophageal reflux disease Hypertension, currently borderline Hyperlipidemia Hypothyroidism Hypokalemia, resolved Plan: Continue on current medication regime ,monitoring and symptomatic treatment. Discharge planning in progress as per primary. Patient has been instructed to continue aggressive pulmonary toileting with incentive spirometer reinforced. Follow up in office on Tuesday as previously scheduled. The impression and plan of care has been dictated as directed. : I performed a history and examination of this patient, discussed the same with the dictator. I agree with the dictator's note ,documented as a scribe. Any additional findings or plans will be noted.
[2021-09-02] MEDS ORDERED: amLODIPine 5 MG TAB PO SCH (21:00)
== END 2021-09-02 14:14 | disposition home or self-care (01) | DRG 621 ==
LOC: 2ORMAIN 07:26 → EDSTATUS 07:40 → 4SSUR 15:59
PROVIDERS: ADMIT Surgery; ATTEND Surgery
PROC: 0DB64Z3 Excision of Stomach, Percutaneous Endoscopic Approach, Vertical (ICD-10-PCS; principal; 2021-08-31 08:40)
DX: E66.01 Morbid (severe) obesity due to excess calories (principal); Z68.41 Body mass index [BMI] 40.0-44.9, adult; E03.9 Hypothyroidism, unspecified; E11.9 Type 2 diabetes mellitus without complications; E78.5 Hyperlipidemia, unspecified; I10 Essential (primary) hypertension; K21.9 Gastro-esophageal reflux disease without esophagitis; E87.6 Hypokalemia; Z20.822 Contact with and (suspected) exposure to COVID-19; N32.81 Overactive bladder; K58.9 Irritable bowel syndrome, unspecified; Z79.899 Other long term (current) drug therapy; Z90.49 Acquired absence of other specified parts of digestive tract; Z98.51 Tubal ligation status
CPT/HCPCS: 74240; 80048; 80051; 81025; 82310; 82565; 83735; 84100; 84520; 85025; 87635; 88307; 94640; 94760; 94762

== ENCOUNTER → 2021-09-04 | Outpatient (CLI) | payer BC ==
[2021-09-04 11:34] VITALS: BP 135/85; PULSE 76; TEMP 98.5; BMI 39.7
== END ==
LOC: BARWHC3 09:46
PROVIDERS: ATTEND Surgery
DX: E66.01 Morbid (severe) obesity due to excess calories (principal); Z98.84 Bariatric surgery status; Z68.36 Body mass index [BMI] 36.0-36.9, adult
CPT/HCPCS: 99211

== ENCOUNTER → 2021-09-14 | Outpatient (CLI) | payer BC ==
[2021-09-14 13:17] VITALS: BP 148/89; PULSE 70; RESP 18; TEMP 97.7; BMI 37.5
--- NOTE | 2021-09-14 13:46 | P.HPBAR ---
Bariatric H&P - History & Physicial H&P Date: 09/14/21 History & Physicial: Visit/CC: follow up Patient initial contact: Initial weight: Initial weight in pounds: Height: 5 ft 3.5 in Initial BMI: Last weight: Current weight: 97.522 kg Current weight in pounds: 215.00 Current BMI: 37.5 [place] body weight (based on NIH guidelines): 53.297 kg Excess body weight loss: The patient is a 51 year-old F who presents for Bariatric Assessment. Patient presents today for bariatric follow. She's doing quite well. She denies any significant pain. She's had some mild GERD. Past Medical History Past Medical History: No Reported History, Diabetes Mellitus, GERD/Reflux, Hyperlipidemia, Hypertension, Thyroid Disorder Additional Past Medical History / Comment(s): DM II. IBS. overactive bladder. History of Any Multi-Drug Resistant Organisms: None Reported Past Surgical History: Bariatric Surgery, Breast Surgery, Section, Cholecystectomy, Tubal Ligation, Uterine Ablation Additional Past Surgical History / Comment(s): 2007 - US needle core left breast biopsy, benign fibroid cyst. 2020 - lasik eye surgery. 2020 - US guided left breast biopsy, benign fibroid cyst. 08/31/21 - sleeve. Past Anesthesia/Blood Transfusion Reactions: No Reported Reaction Past Psychological History: No Psychological Hx Reported Smoking Status: Never smoker Past Alcohol Use History: Rare Past Drug Use History: None Reported - Past Family History Mother Family Medical History: No Reported History Surgical - Exam Vital Signs Temp Pulse Resp BP 97.7 F 70 18 148/89 09/14/21 13:09 09/14/21 13:09 09/14/21 13:09 09/14/21 13:09 - General well developed, well nourished, no distress - Eyes PERRL - ENT normal pinna - Neck no masses - Respiratory normal expansion - Cardiovascular Rhythm: regular - Abdomen Abdomen: soft, non tender Bariatric Assessment & Plan Plan: Status post sleeve gastrectomy. Patient is minimal and will be observed temperature follow-up in 4 weeks. Bariatric Checklist Checklist: Plan: Checklist: EGD: 1. Hiatal hernia: 2. H. Pylori: HgbA1c: Vitamin D: Smoking: Never smoker Primary care physician referral: SHABANA Hernandez Psychiatry clearance: Cardiology clearance: Sleep study: Diet journal: VTE risk score: VTE risk level: Rehab needs at discharge:
== END ==
LOC: BARWHC3 12:36
PROVIDERS: ATTEND Surgery
DX: E66.01 Morbid (severe) obesity due to excess calories (principal); Z71.3 Dietary counseling and surveillance; E11.9 Type 2 diabetes mellitus without complications; K21.9 Gastro-esophageal reflux disease without esophagitis; E78.5 Hyperlipidemia, unspecified; I10 Essential (primary) hypertension; Z98.84 Bariatric surgery status; Z68.37 Body mass index [BMI] 37.0-37.9, adult; Z79.899 Other long term (current) drug therapy
CPT/HCPCS: 97803; 99211

== ENCOUNTER → 2021-09-28 | Outpatient (CLI) | payer BC ==
[2021-09-28 14:11] VITALS: BP 162/91; PULSE 69; RESP 18; TEMP 98.3; BMI 36.4
--- NOTE | 2021-09-28 16:03 | P.HPBAR ---
Bariatric H&P - History & Physicial H&P Date: 09/28/21 History & Physicial: Visit/CC: follow up Patient initial contact: Initial weight: Initial weight in pounds: Height: 5 ft 3.5 in Initial BMI: Last weight: Current weight: 94.801 kg Current weight in pounds: 209.00 Current BMI: 36.4 [place] body weight (based on NIH guidelines): 53.297 kg Excess body weight loss: The patient is a 51 year-old F who presents for Bariatric Assessment. Patient presents today for sleeve gastrectomy follow-up. She feels well. She's had some mild GERD. She denies any dysphagia Past Medical History Past Medical History: No Reported History, Diabetes Mellitus, GERD/Reflux, Hyperlipidemia, Hypertension, Thyroid Disorder Additional Past Medical History / Comment(s): DM II. IBS. overactive bladder. History of Any Multi-Drug Resistant Organisms: None Reported Past Surgical History: Bariatric Surgery, Breast Surgery, Section, Cholecystectomy, Tubal Ligation, Uterine Ablation Additional Past Surgical History / Comment(s): 2007 - US needle core left breast biopsy, benign fibroid cyst. 2020 - lasik eye surgery. 2020 - US guided left breast biopsy, benign fibroid cyst. 08/31/21 - sleeve. Past Anesthesia/Blood Transfusion Reactions: No Reported Reaction Past Psychological History: No Psychological Hx Reported Smoking Status: Never smoker Past Alcohol Use History: Rare Past Drug Use History: None Reported - Past Family History Mother Family Medical History: No Reported History Surgical - Exam Vital Signs Temp Pulse Resp BP 98.3 F 69 18 162/91 09/28/21 14:07 09/28/21 14:07 09/28/21 14:07 09/28/21 14:07 - General well developed, well nourished, no distress - Eyes PERRL - ENT normal pinna - Neck no masses - Respiratory normal expansion - Cardiovascular Rhythm: regular - Abdomen Abdomen: soft, non tender Bariatric Assessment & Plan Plan: Mild GERD. We'll be observed. Her morbid obesity is improving. Bariatric Checklist Checklist: Plan: Checklist: EGD: 1. Hiatal hernia: 2. H. Pylori: HgbA1c: Vitamin D: Smoking: Never smoker Primary care physician referral: SHABANA Hernandez Psychiatry clearance: Cardiology clearance: Sleep study: Diet journal: VTE risk score: VTE risk level: Rehab needs at discharge:
== END ==
LOC: BARWHC3 13:07
PROVIDERS: ATTEND Surgery
DX: E66.01 Morbid (severe) obesity due to excess calories (principal); K21.9 Gastro-esophageal reflux disease without esophagitis; E11.9 Type 2 diabetes mellitus without complications; E78.5 Hyperlipidemia, unspecified; I10 Essential (primary) hypertension; Z68.36 Body mass index [BMI] 36.0-36.9, adult; Z98.84 Bariatric surgery status
CPT/HCPCS: 99211

== ENCOUNTER → 2021-10-28 | Outpatient (CLI) | payer BC ==
--- NOTE | 2021-10-29 10:15 | NM ---
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 FINDINGS: There is normal distribution of activity throughout the gland. The 4 hour iodine uptake is calculated at 6.3% (normal range 8-14%). The 24-hour iodine uptake is calculated at 30.6% (normal ra nge 15-35%). There is homogeneous distribution radiotracer throughout the thyroid lobes without evidence for hilar , nodule at this time. IMPRESSION: 4 hour uptake is minimally diminished within normal 24-hour uptake. No evidence for hilar colon nodule at this time.
== END | disposition home or self-care (01) ==
LOC: RADNMMAIN 10-21 08:47
PROVIDERS: ATTEND Family Medicine
DX: E04.9 Nontoxic goiter, unspecified (principal)
CPT/HCPCS: 78014; A9516

== ENCOUNTER → 2021-12-21 | Outpatient (CLI) | payer BC ==
[2021-12-21 12:58] VITALS: BP 163/95; PULSE 66; TEMP 97.5; BMI 33.8
--- NOTE | 2022-03-16 12:23 | P.HPBAR ---
Bariatric H&P - History & Physicial H&P Date: 12/21/21 History & Physicial: Visit/CC: sleeve f/u Patient initial contact: Initial weight: Initial weight in pounds: Height: 5 ft 3.5 in Initial BMI: Last weight: Current weight: 87.997 kg Current weight in pounds: 194.00 Current BMI: 33.8 [place] body weight (based on NIH guidelines): 53.297 kg Excess body weight loss: The patient is a 51 year-old F who presents for Bariatric Assessment. Patient presents today for sleeve gastrectomy follow-up. She's had some minimal GERD. Her current weight is 194 pounds. She currently is 204 pounds. Past Medical History Past Medical History: No Reported History, Diabetes Mellitus, GERD/Reflux, Hyperlipidemia, Hypertension, Thyroid Disorder Additional Past Medical History / Comment(s): DM II. IBS. overactive bladder. History of Any Multi-Drug Resistant Organisms: None Reported Past Surgical History: Bariatric Surgery, Breast Surgery, Section, Cholecystectomy, Tubal Ligation, Uterine Ablation Additional Past Surgical History / Comment(s): 2007 - US needle core left breast biopsy, benign fibroid cyst. 2020 - lasik eye surgery. 2020 - US guided left breast biopsy, benign fibroid cyst. 08/31/21 - sleeve. Past Anesthesia/Blood Transfusion Reactions: No Reported Reaction Past Psychological History: No Psychological Hx Reported Smoking Status: Never smoker Past Alcohol Use History: Rare Past Drug Use History: None Reported - Past Family History Mother Family Medical History: No Reported History Surgical - Exam Vital Signs Temp Pulse BP 97.5 F L 66 163/95 12/21/21 12:56 12/21/21 12:56 12/21/21 12:56 - General well developed, well nourished, no distress - Eyes PERRL - ENT normal pinna - Neck no masses - Respiratory normal expansion - Cardiovascular Rhythm: regular - Abdomen Abdomen: soft, non tender Bariatric Assessment & Plan Plan: Resolving morbid obesity. Patient's BMI is 33. She will follow-up in 4 weeks. Her GERD is minimal will be observed. Bariatric Checklist Checklist: Plan: Checklist: EGD: 1. Hiatal hernia: 2. H. Pylori: HgbA1c: Vitamin D: Smoking: Never smoker Primary care physician referral: Cassy Fleming, [facility] Psychiatry clearance: Cardiology clearance: Sleep study: Diet journal: VTE risk score: VTE risk level: Rehab needs at discharge:
== END ==
LOC: BARWHC3 12:36
PROVIDERS: ATTEND Surgery
DX: E66.01 Morbid (severe) obesity due to excess calories (principal); E11.9 Type 2 diabetes mellitus without complications; K21.9 Gastro-esophageal reflux disease without esophagitis; E78.5 Hyperlipidemia, unspecified; I10 Essential (primary) hypertension; Z98.84 Bariatric surgery status; Z68.33 Body mass index [BMI] 33.0-33.9, adult
CPT/HCPCS: 99211

== ENCOUNTER → 2022-01-18 | Outpatient (CLI) | payer BC ==
[2022-01-18 13:07] VITALS: BP 157/93; PULSE 61; TEMP 97.7; BMI 33.3
--- NOTE | 2022-01-18 15:42 | P.HPBAR ---
Bariatric H&P - History & Physicial H&P Date: 01/18/22 History & Physicial: Visit/CC: sleeve f/u Patient initial contact: Initial weight: Initial weight in pounds: Height: 5 ft 3.5 in Initial BMI: Last weight: 191 Current weight: 86.636 kg Current weight in pounds: 191.00 Current BMI: 33.3 [place] body weight (based on NIH guidelines): 53.297 kg Excess body weight loss: The patient is a 51 year-old F who presents for Bariatric Assessment. Patient resents today for sleeve gastrectomy follow-up. She's had some mild complaints of mild GERD. Her weight is stable. She denies any significant issues. Past Medical History Past Medical History: No Reported History, Diabetes Mellitus, GERD/Reflux, Hyperlipidemia, Hypertension, Thyroid Disorder Additional Past Medical History / Comment(s): DM II. IBS. overactive bladder. History of Any Multi-Drug Resistant Organisms: None Reported Past Surgical History: Bariatric Surgery, Breast Surgery, Section, Cho lecystectomy, Tubal Ligation, Uterine Ablation Additional Past Surgical History / Comment(s): 2007 - US needle core left breast biopsy, benign fibroid cyst. 2020 - lasik eye surgery. 2020 - US guided left breast biopsy, benign fibroid cyst. 08/31/21 - sleeve. Past Anesthesia/Blood Transfusion Reactions: No Reported Reaction Past Psychological History: No Psychological Hx Reported Smoking Status: Never smoker Past Alcohol Use History: Rare Past Drug Use History: None Reported - Past Family History Mother Family Medical History: No Reported History Surgical - Exam Vital Signs Temp Pulse BP 97.7 F 61 157/93 01/18/22 13:02 01/18/22 13:02 01/18/22 13:02 - General well developed, well nourished, no distress - Eyes PERRL - ENT normal pinna, normal nares, normal mucosa - Neck no masses - Respiratory normal expansion - Cardiovascular Rhythm: regular - Abdomen Abdomen: soft, non tender Bariatric Assessment & Plan Plan: Morbid obesity slowly improving. Her GERD is minimal will be observed. Bariatric Checklist Checklist: Plan: Checklist: EGD: 1. Hiatal hernia: 2. H. Pylori: HgbA1c: Vitamin D: Smoking: Never smoker Primary care physician referral: SHABANA Hernandez Psychiatry clearance: Cardiology clearance: Sleep study: Diet journal: VTE risk score: VTE risk level: Rehab needs at discharge:
[2022-01-18 17:58] LABS: HCT 40.6 % (37.2-46.3); HGB 12.9 g/dL (12.0-15.0); MCH 28.2 pg (27.0-32.0); MCHC 31.8 g/dL (32.0-37.0); MCV 88.6 fL (80.0-97.0); Mean Platelet Volume 12.7 fL (9.5-12.2); NRBC Per 100 WBC 0 /100 WBCS (0.0-0.0); Platelet Count 274 X 10*3/uL (140-440); RBC 4.58 X 10*6/uL (4.10-5.20); RDW 12.8 % (11.5-14.5); WBC 6.11 X 10*3/uL (4.50-10.00)
[2022-01-18 18:13] LABS: % Iron Saturation 16.39 (12.00-45.00); African American GFR (CKD) 115.1 (60.0-200.0); Albumin 4.3 g/dL (3.8-4.9); Albumin/Globulin Ratio 1.44 (1.60-3.17); Anion Gap 10.8 mmol/L (10.00-18.00); BUN/Creat Ratio 17.32 Ratio (12.00-20.00); Blood Urea Nitrogen 12.3 mg/dL (9.0-27.0); Calcium 9.5 mg/dL (8.7-10.3); Carbon Dioxide 24.6 mmol/L (20.0-27.5); Ferritin 52.2 ng/mL (10.0-291.0); Magnesium 2.1 mg/dL (1.5-2.4); Non-African American GFR(CKD) 99.3 (60.0-200.0); Potassium 4.3 mmol/L (3.5-5.5); Total Bilirubin 0.4 mg/dL (0.30-1.20); Total Protein 7.2 g/dL (6.2-8.2)
[2022-01-19 12:28] LABS: Zinc, Serum 67 ug/dL (60-130)
[2022-01-20 06:16] LABS: Vitamin A 72 ug/dL (38-106)
== END ==
LOC: BARWHC3 12:47
PROVIDERS: ATTEND Surgery
DX: E66.01 Morbid (severe) obesity due to excess calories (principal); Z98.84 Bariatric surgery status; K21.9 Gastro-esophageal reflux disease without esophagitis; I10 Essential (primary) hypertension; E78.5 Hyperlipidemia, unspecified; E11.9 Type 2 diabetes mellitus without complications; Z68.33 Body mass index [BMI] 33.0-33.9, adult
CPT/HCPCS: 80053; 82306; 82607; 82728; 82746; 83540; 83550; 83735; 84255; 84425; 84443; 84590; 84630; 85027; 99211

== ENCOUNTER → 2022-03-22 | Outpatient (CLI) | payer BC ==
[2022-03-22 13:01] VITALS: BP 156/88; PULSE 71; TEMP 97.7; BMI 32.4
--- NOTE | 2022-03-22 15:35 | P.HPBAR ---
Bariatric H&P - History & Physicial H&P Date: 03/22/22 History & Physicial: Visit/CC: 6 month f/u sleeve Patient initial contact: Initial weight: Initial weight in pounds: Height: 5 ft 3.5 in Initial BMI: Last weight: Current weight: 84.368 kg Current weight in pounds: 186.00 Current BMI: 32.4 [place] body weight (based on NIH guidelines): 53.297 kg Excess body weight loss: The patient is a 51 year-old F who presents for Bariatric Assessment. Patient presents today for bariatric follow-up. She has lost another 5 pounds. She's had some minimal GERD. Past Medical History Past Medical History: No Reported History, Diabetes Mellitus, GERD/Reflux, Hyperlipidemia, Hypertension, Thyroid Disorder Additional Past Medical History / Comment(s): DM II. IBS. overactive bladder. History of Any Multi-Drug Resistant Organisms: None Reported Past Surgical History: Bariatric Surgery, Breast Surgery, Section, Cholecystectomy, Tubal Ligation, Uterine Ablation Additional Past Surgical History / Comment(s): 2007 - US needle core left breast biopsy, benign fibroid cyst. 2020 - lasik eye surgery. 2020 - US guided left breast biopsy, benign fibroid cyst. 08/31/21 - sleeve. Past Anesthesia/Blood Transfusion Reactions: No Reported Reaction Past Psychological History: No Psychological Hx Reported Smoking Status: Never smoker Past Alcohol Use History: Rare Past Drug Use History: None Reported - Past Family History Mother Family Medical History: No Reported History Surgical - Exam Vital Signs Temp Pulse BP 97.7 F 71 156/88 03/22/22 12:58 03/22/22 12:58 03/22/22 12:58 - General well developed, well nourished, no distress - Eyes PERRL - ENT normal pinna - Neck no masses - Respiratory normal expansion - Cardiovascular Rhythm: regular - Abdomen Abdomen: soft, non tender Bariatric Assessment & Plan Plan: Morbid obesity is improving. Patient's GERD is minimal will be observed. She'll follow-up in 4 weeks. Bariatric Checklist Checklist: Plan: Checklist: EGD: 1. Hiatal hernia: 2. H. Pylori: HgbA1c: Vitamin D: Smoking: Never smoker Primary care physician referral: SHABANA Hernandez Psychiatry clearance: Cardiology clearance: Sleep study: Diet journal: VTE risk score: VTE risk level: Rehab needs at discharge:
== END ==
LOC: BARWHC3 12:42
PROVIDERS: ATTEND Surgery
DX: E66.01 Morbid (severe) obesity due to excess calories (principal); K21.9 Gastro-esophageal reflux disease without esophagitis; Z68.32 Body mass index [BMI] 32.0-32.9, adult; E11.9 Type 2 diabetes mellitus without complications; Z71.3 Dietary counseling and surveillance; E78.5 Hyperlipidemia, unspecified; I10 Essential (primary) hypertension; Z98.84 Bariatric surgery status
CPT/HCPCS: 97803; 99211

== ENCOUNTER → 2022-05-24 | Outpatient (CLI) | payer BC ==
[2022-05-24 13:10] VITALS: BP 178/84; PULSE 73; TEMP 97.7; BMI 32.9
--- NOTE | 2022-05-24 14:37 | P.HPBAR ---
Bariatric H&P - History & Physicial H&P Date: 05/24/22 History & Physicial: Visit/CC: sleeve f/u Patient initial contact: Initial weight: Initial weight in pounds: Height: 5 ft 3.5 in Initial BMI: Last weight: Current weight: 85.729 kg Current weight in pounds: 189.00 Current BMI: 32.9 [place] body weight (based on NIH guidelines): 53.297 kg Excess body weight loss: The patient is a 52 year-old F who presents for Bariatric Assessment.sshe has gained 3 pounds since her last visit. She's had some minimal GERD. Past Medical History Past Medical History: No Reported History, Diabetes Mellitus, GERD/Reflux, Hyperlipidemia, Hypertension, Thyroid Disorder Additional Past Medical History / Comment(s): DM II. IBS. overactive bladder. History of Any Multi-Drug Resistant Organisms: None Reported Past Surgical History: Bariatric Surgery, Breast Surgery, Section, Cholecystectomy, Tubal Ligation, Uterine Ablation Additional Past Surgical History / Comment(s): 2007 - US needle core left breast biopsy, benign fibroid cyst. 2020 - lasik eye surgery. 2020 - US guided left breast biopsy, benign fibroid cyst. 08/31/21 - sleeve. Past Anesthesia/Blood Transfusion Reactions: No Reported Reaction Past Psychological History: No Psychological Hx Reported Smoking Status: Never smoker Past Alcohol Use History: Rare Past Drug Use History: None Reported - Past Family History Mother Family Medical History: No Reported History Surgical - Exam Vital Signs Temp Pulse BP 97.7 F 73 178/84 05/24/22 13:06 05/24/22 13:06 05/24/22 13:06 - General well developed, well nourished, no distress - Eyes PERRL - ENT normal pinna - Neck no masses - Respiratory normal expansion - Cardiovascular Rhythm: regular - Abdomen Abdomen: soft, non tender Bariatric Assessment & Plan Plan: status post gastric sleeve. Patient's GERD is minimal and will be observed. Bariatric Checklist Checklist: Plan: Checklist: EGD: 1. Hiatal hernia: 2. H. Pylori: HgbA1c: Vitamin D: Smoking: Never smoker Primary care physician referral: SHABANA Hernandez Psychiatry clearance: Cardiology clearance: Sleep study: Diet journal: VTE risk score: VTE risk level: Rehab needs at discharge:
[2022-05-24 17:42] LABS: HCT 40.8 % (37.2-46.3); HGB 13.4 g/dL (12.0-15.0); MCH 29.6 pg (27.0-32.0); MCHC 32.8 g/dL (32.0-37.0); MCV 90.3 fL (80.0-97.0); Mean Platelet Volume 12.8 fL (9.5-12.2); NRBC Per 100 WBC 0 /100 WBCS (0.0-0.0); Platelet Count 324 X 10*3/uL (140-440); RBC 4.52 X 10*6/uL (4.10-5.20); RDW 12.1 % (11.5-14.5); WBC 6.87 X 10*3/uL (4.50-10.00)
[2022-05-24 18:37] LABS: % Iron Saturation 15.58 (12.00-45.00); Albumin 4.2 g/dL (3.8-4.9); Albumin/Globulin Ratio 1.33 (1.60-3.17); Anion Gap 12.1 mmol/L (10.00-18.00); BUN/Creat Ratio 19.65 Ratio (12.00-20.00); Blood Urea Nitrogen 13.5 mg/dL (9.0-27.0); Calcium 9.5 mg/dL (8.7-10.3); Carbon Dioxide 25.3 mmol/L (20.0-27.5); Ferritin 53.6 ng/mL (10.0-291.0); Globulin 3.2 g/dL (1.6-3.3); Non-African American GFR(CKD) 100.9 (60.0-200.0); Potassium 4.1 mmol/L (3.5-5.5); Total Bilirubin 0.4 mg/dL (0.30-1.20); Total Protein 7.4 g/dL (6.2-8.2)
[2022-05-25 11:41] LABS: Zinc, Serum 71 ug/dL (60-130)
[2022-05-26 06:11] LABS: Vitamin A 77 ug/dL (38-106)
[2022-05-26 13:27] LABS: Vit B1(Thiamine) 73 ug/L (38-122)
== END ==
LOC: BARWHC3 12:45
PROVIDERS: ATTEND Surgery
DX: Z98.84 Bariatric surgery status (principal); D50.8 Other iron deficiency anemias; E55.9 Vitamin D deficiency, unspecified; T56.894A Toxic effect of other metals, undetermined, initial encounter; K90.9 Intestinal malabsorption, unspecified; E66.01 Morbid (severe) obesity due to excess calories; Z68.33 Body mass index [BMI] 33.0-33.9, adult
CPT/HCPCS: 80053; 82306; 82607; 82728; 82746; 83540; 83550; 83735; 84255; 84425; 84443; 84590; 84630; 85027; 99211

== ENCOUNTER → 2022-08-23 | Outpatient (CLI) | payer BC ==
[2022-08-23 13:09] VITALS: BP 166/87; PULSE 67; TEMP 97.9; BMI 33.1
== END ==
LOC: BARWHC3 12:36
PROVIDERS: ATTEND Surgery
DX: Z53.9 Procedure and treatment not carried out, unspecified reason (principal)
CPT/HCPCS: 99211

== ENCOUNTER → 2022-11-15 | Outpatient (CLI) | payer BC ==
[2022-11-15 14:42] VITALS: BP 168/83; PULSE 69; TEMP 98.2; BMI 34.3
--- NOTE | 2023-01-18 09:08 | P.HPBAR ---
Bariatric H&P - History & Physicial H&P Date: 11/15/22 History & Physicial: Visit/CC: sleeve F/U Patient initial contact: Initial weight: Initial weight in pounds: Height: 5 ft 3.5 in Initial BMI: Last weight: Current weight: 89.358 kg Current weight in pounds: 197.00 Current BMI: 34.3 [place] body weight (based on NIH guidelines): 53.297 kg Excess body weight loss: The patient is a 52 year-old F who presents for Bariatric Assessment. Patient presents today for bariatric follow-up. She's had some minimal GERD. Her weight is remain stable. Past Medical History Past Medical History: No Reported History, Diabetes Mellitus, GERD/Reflux, Hyperlipidemia, Hypertension, Thyroid Disorder Additional Past Medical History / Comment(s): DM II. IBS. overactive bladder. History of Any Multi-Drug Resistant Organisms: None Reported Past Surgical History: Bariatric Surgery, Breast Surgery, Section, Cholecystectomy, Tubal Ligation, Uterine Ablation Additional Past Surgical History / Comment(s): 2007 - US needle core left breast biopsy, benign fibroid cyst. 2020 - lasik eye surgery. 2020 - US guided left breast biopsy, benign fibroid cyst. 08/31/21 - sleeve. Past Anesthesia/Blood Transfusion Reactions: No Reported Reaction Past Psychological History: No Psychological Hx Reported Smoking Status: Never smoker Past Alcohol Use History: Rare Past Drug Use History: None Reported - Past Family History Mother Family Medical History: No Reported History Surgical - Exam Vital Signs Temp Pulse BP 98.2 F 69 168/83 11/15/22 14:35 11/15/22 14:35 11/15/22 14:35 - General well developed, well nourished, no distress - Eyes PERRL - ENT normal pinna - Neck no masses - Respiratory normal expansion - Cardiovascular Rhythm: regular - Abdomen Abdomen: soft, non tender Bariatric Assessment & Plan Plan: Resolving morbid obesity. Patient's BMI is 34. Her GERD is minimal and will be observed. She'll follow-up in 3 months. Bariatric Checklist Checklist: Plan: Checklist: EGD: 1. Hiatal hernia: 2. H. Pylori: HgbA1c: Vitamin D: Smoking: Never smoker Primary care physician referral: SHABANA Hernandez Psychiatry clearance: Cardiology clearance: Sleep study: Diet journal: VTE risk score: VTE risk level: Rehab needs at discharge:
== END ==
LOC: BARWHC3 08:52
PROVIDERS: ATTEND Surgery
DX: E66.01 Morbid (severe) obesity due to excess calories (principal); Z68.34 Body mass index [BMI] 34.0-34.9, adult; Z98.84 Bariatric surgery status; E11.9 Type 2 diabetes mellitus without complications; K21.9 Gastro-esophageal reflux disease without esophagitis; E78.5 Hyperlipidemia, unspecified
CPT/HCPCS: 99211

== ENCOUNTER → 2022-11-15 | Outpatient (CLI) | payer BC ==
[2022-11-15 15:32] LABS: HCT 40.7 % (37.2-46.3); HGB 13.4 g/dL (12.0-15.0); MCH 29.4 pg (27.0-32.0); MCHC 32.9 g/dL (32.0-37.0); MCV 89.3 fL (80.0-97.0); NRBC Per 100 WBC 0 /100 WBCS (0.0-0.0); Platelet Count 277 X 10*3/uL (140-440); RBC 4.56 X 10*6/uL (4.10-5.20); RDW 12.2 % (11.5-14.5); WBC 7.05 X 10*3/uL (4.50-10.00)
[2022-11-15 16:58] LABS: % Iron Saturation 26.76 (12.00-45.00); African American GFR (CKD) 117.4 (60.0-200.0); Albumin 4.4 g/dL (3.8-4.9); Albumin/Globulin Ratio 1.42 (1.60-3.17); Anion Gap 11.2 mmol/L (10.00-18.00); BUN/Creat Ratio 21.94 Ratio (12.00-20.00); Blood Urea Nitrogen 14.9 mg/dL (9.0-27.0); Calcium 9.8 mg/dL (8.7-10.3); Carbon Dioxide 25.9 mmol/L (20.0-27.5); Ferritin 41.8 ng/mL (10.0-291.0); Globulin 3.1 g/dL (1.6-3.3); Non-African American GFR(CKD) 101.3 (60.0-200.0); Potassium 4.6 mmol/L (3.5-5.5); Total Bilirubin 0.4 mg/dL (0.30-1.20); Total Protein 7.4 g/dL (6.2-8.2)
[2022-11-16 13:07] LABS: Zinc, Serum 81 ug/dL (60-130)
== END | disposition home or self-care (01) ==
LOC: LABWHC1 10:40
PROVIDERS: ATTEND Surgery
DX: E66.01 Morbid (severe) obesity due to excess calories (principal); D50.8 Other iron deficiency anemias; E44.0 Moderate protein-calorie malnutrition; E55.9 Vitamin D deficiency, unspecified; T56.894A Toxic effect of other metals, undetermined, initial encounter
CPT/HCPCS: 36415; 80053; 82306; 82607; 82728; 82746; 83540; 83550; 83735; 84255; 84425; 84443; 84590; 84630; 85027

== ENCOUNTER → 2023-02-21 | Outpatient (CLI) | payer BC ==
[2023-02-21 12:57] VITALS: BP 163/86; PULSE 68; TEMP 97.8; BMI 34.9
--- NOTE | 2023-03-11 09:41 | P.HPBAR ---
Bariatric H&P - History & Physicial H&P Date: 02/21/23 History & Physicial: Visit/CC: sleeve F/U Patient initial contact: Initial weight: Initial weight in pounds: Height: 5 ft 3.5 in Initial BMI: Last weight: Current weight: 90.718 kg Current weight in pounds: 200.00 Current BMI: 34.9 [place] body weight (based on NIH guidelines): 53.297 kg Excess body weight loss: The patient is a 52 year-old F who presents for Bariatric Assessment. Patient presents today for sleeve gastrectomy fall. She's had minimal issues. Patient does have some mild GERD. Her weight loss has been stable. Past Medical History Past Medical History: No Reported History, Diabetes Mellitus, GERD/Reflux, Hyperlipidemia, Hypertension, Thyroid Disorder Additional Past Medical History / Comment(s): DM II. IBS. overactive bladder. History of Any Multi-Drug Resistant Organisms: None Reported Past Surgical History: Bariatric Surgery, Breast Surgery, Section, Cholecystectomy, Tubal Ligation, Uterine Ablation Additional Past Surgical History / Comment(s): 2007 - US needle core left breast biopsy, benign fibroid cyst. 2020 - lasik eye surgery. 2020 - US guided left breast biopsy, benign fibroid cyst. 08/31/21 - sleeve. Past Anesthesia/Blood Transfusion Reactions: No Reported Reaction Past Psychological History: No Psychological Hx Reported Smoking Status: Never smoker Past Alcohol Use History: Rare Past Drug Use History: None Reported - Past Family History Mother Family Medical History: No Reported History Surgical - Exam Vital Signs Temp Pulse BP 97.8 F 68 163/86 02/21/23 12:54 02/21/23 12:54 02/21/23 12:54 - General well developed, well nourished, no distress - Abdomen Abdomen: soft, non tender Bariatric Assessment & Plan Plan: Status post sleeve gastrectomy. Patient's GERD is minimal will be observed. She'll follow-up in 4 weeks. Bariatric Checklist Checklist: Plan: Checklist: EGD: 1. Hiatal hernia: 2. H. Pylori: HgbA1c: Vitamin D: Smoking: Never smoker Primary care physician referral: SHABANA Hernandez Psychiatry clearance: Cardiology clearance: Sleep study: Diet journal: VTE risk score: VTE risk level: Rehab needs at discharge:
== END ==
LOC: BARWHC3 12:45
PROVIDERS: ATTEND Surgery
DX: K21.9 Gastro-esophageal reflux disease without esophagitis (principal); E66.01 Morbid (severe) obesity due to excess calories; E11.9 Type 2 diabetes mellitus without complications; E78.5 Hyperlipidemia, unspecified; I10 Essential (primary) hypertension; E07.9 Disorder of thyroid, unspecified; K58.9 Irritable bowel syndrome, unspecified; Z98.84 Bariatric surgery status; Z68.34 Body mass index [BMI] 34.0-34.9, adult; Z79.890 Hormone replacement therapy; Z79.899 Other long term (current) drug therapy
CPT/HCPCS: 99211

== ENCOUNTER → 2023-05-30 | Outpatient (CLI) | payer BC ==
[2023-05-30 10:48] VITALS: BP 153/85; PULSE 69; TEMP 98; BMI 35.7
--- NOTE | 2023-06-06 14:38 | P.HPBAR ---
Bariatric H&P - History & Physicial H&P Date: 05/30/23 History & Physicial: Visit/CC: sleeve F/U Patient initial contact: Initial weight: Initial weight in pounds: Height: 5 ft 3.5 in Initial BMI: Last weight: Current weight: 92.986 kg Current weight in pounds: 205.00 Current BMI: 35.7 [place] body weight (based on NIH guidelines): 53.297 kg Excess body weight loss: The patient is a 53 year-old F who presents for Bariatric Assessment.Patient presents today for bariatric follow-up. She has some mild complaints of GERD. She denies any dysphagia. Past Medical History Past Medical History: No Reported History, Diabetes Mellitus, GERD/Reflux, Hyperlipidemia, Hypertension, Thyroid Disorder Additional Past Medical History / Comment(s): DM II. IBS. overactive bladder. History of Any Multi-Drug Resistant Organisms: None Reported Past Surgical History: Bariatric Surgery, Breast Surgery, Section, Cholecystectomy, Tubal Ligation, Uterine Ablation Additional Past Surgical History / Comment(s): 2007 - US needle core left breast biopsy, benign fibroid cyst. 2020 - lasik eye surgery. 2020 - US guided left breast biopsy, benign fibroid cyst. 08/31/21 - sleeve. Past Anesthesia/Blood Transfusion Reactions: No Reported Reaction Past Psychological History: No Psychological Hx Reported Smoking Status: Never smoker Past Alcohol Use History: Rare Past Drug Use History: None Reported - Past Family History Mother Family Medical History: No Reported History Surgical - Exam Vital Signs Temp Pulse BP 98 F 69 153/85 05/30/23 10:33 05/30/23 10:33 05/30/23 10:33 - General well developed, well nourished, no distress - Abdomen Abdomen: soft, non tender Bariatric Assessment & Plan Plan: Patient is doing well status post sleeve gastrectomy. His GERD is minimal will be observed. She will follow-up in 6 to 12 months. Bariatric Checklist Checklist: Plan: Checklist: EGD: 1. Hiatal hernia: 2. H. Pylori: HgbA1c: Vitamin D: Smoking: Never smoker Primary care physician referral: SHABANA Hernandez Psychiatry clearance: Cardiology clearance: Sleep study: Diet journal: VTE risk score: VTE risk level: Rehab needs at discharge:
== END ==
LOC: BARWHC3 10:18
PROVIDERS: ATTEND Surgery
DX: K21.9 Gastro-esophageal reflux disease without esophagitis (principal); E66.01 Morbid (severe) obesity due to excess calories; E11.9 Type 2 diabetes mellitus without complications; E78.5 Hyperlipidemia, unspecified; I10 Essential (primary) hypertension; E07.9 Disorder of thyroid, unspecified; K58.9 Irritable bowel syndrome, unspecified; Z98.84 Bariatric surgery status; Z68.35 Body mass index [BMI] 35.0-35.9, adult; Z79.890 Hormone replacement therapy; Z79.899 Other long term (current) drug therapy
CPT/HCPCS: 99211

== ENCOUNTER → 2023-12-12 | Outpatient (CLI) | payer BC ==
[2023-12-12 11:35] VITALS: BP 156/87; PULSE 73; RESP 14; TEMP 97.5; BMI 37.3
--- NOTE | 2024-03-01 12:07 | P.HPBAR ---
Bariatric H&P - History & Physicial H&P Date: 12/12/23 History & Physicial: Visit/CC: follow up Patient initial contact: Initial weight: Initial weight in pounds: Height: 5 ft 3.5 in Initial BMI: Last weight: Current weight: 97.114 kg Current weight in pounds: 214.10 Current BMI: 37.3 [place] body weight (based on NIH guidelines): 53.297 kg Excess body weight loss: The patient is a 53 year-old F who presents for Bariatric Assessment. Patient presents today for bariatric follow-up. She is lost 9 pounds her last visit. She has some complaints of mild gerd. Past Medical History Past Medical History: No Reported History, Diabetes Mellitus, GERD/Reflux, Hyperlipidemia, Hypertension, Thyroid Disorder Additional Past Medical History / Comment(s): DM II. IBS. overactive bladder. History of Any Multi-Drug Resistant Organisms: None Reported Past Surgical History: Bariatric Surgery, Breast Surgery, Section, Cholecystectomy, Tubal Ligation, Uterine Ablation Additional Past Surgical History / Comment(s): 2007 - US needle core left breast biopsy, benign fibroid cyst. 2020 - lasik eye surgery. 2020 - US guided left breast biopsy, benign fibroid cyst. 08/31/21 - sleeve. Past Anesthesia/Blood Transfusion Reactions: No Reported Reaction Past Psychological History: No Psychological Hx Reported Smoking Status: Never smoker Past Alcohol Use History: Rare Past Drug Use History: None Reported - Past Family History Mother Family Medical History: No Reported History Surgical - Exam Vital Signs Temp Pulse Resp BP 97.5 F L 73 14 156/87 12/12/23 11:12 12/12/23 11:12 12/12/23 11:12 12/12/23 11:12 Vital signs appear stable Bariatric Assessment & Plan Plan: Patient is doing well. Her GERD is minimal will be observed. She will follow- up in 3 months. Bariatric Checklist Checklist: Plan: Checklist: EGD: 1. Hiatal hernia: 2. H. Pylori: HgbA1c: Vitamin D: Smoking: Never smoker Primary care physician referral: SHABANA Hernandez Psychiatry clearance: Cardiology clearance: Sleep study: Diet journal: VTE risk score: VTE risk level: Rehab needs at discharge:
== END ==
LOC: BARWHC3 10:16
PROVIDERS: ATTEND Surgery
DX: E66.01 Morbid (severe) obesity due to excess calories (principal); K21.9 Gastro-esophageal reflux disease without esophagitis; Z68.37 Body mass index [BMI] 37.0-37.9, adult; Z98.84 Bariatric surgery status
CPT/HCPCS: 99211

== ENCOUNTER → 2024-07-02 | Outpatient (CLI) | payer BC ==
[2024-07-02 10:33] VITALS: BMI 37.8
[2024-07-02 11:08] VITALS: BP 187/94; PULSE 66; RESP 16; TEMP 98
--- NOTE | 2024-07-02 11:54 | P.HPBAR ---
Bariatric H&P - History & Physicial H&P Date: 07/02/24 History & Physicial: Visit/CC: f/u Patient initial contact: Initial weight: Initial weight in pounds: Height: 5 ft 3.5 in Initial BMI: Last weight: Current weight: 98.43 kg Current weight in pounds: 217.00 Current BMI: 37.8 [place] body weight (based on NIH guidelines): 53.297 kg Excess body weight loss: The patient is a 54 year-old F who presents for Bariatric Assessment. Patient presents today for Peritrate follow-up. She is gained 3 pounds since her last visit. She has minimal gerd. Past Medical History Past Medical History: No Reported History, Diabetes Mellitus, GERD/Reflux, Hyperlipidemia, Hypertension, Thyroid Disorder Additional Past Medical History / Comment(s): DM II. IBS. overactive bladder. History of Any Multi-Drug Resistant Organisms: None Reported Past Surgical History: Bariatric Surgery, Breast Surgery, Section, Cholecystectomy, Tubal Ligation, Uterine Ablation Additional Past Surgical History / Comment(s): 2007 - US needle core left breast biopsy, benign fibroid cyst. 2020 - lasik eye surgery. 2020 - US guided left breast biopsy, benign fibroid cyst. 08/31/21 - sleeve. Past Anesthesia/Blood Transfusion Reactions: No Reported Reaction Past Psychological History: No Psychological Hx Reported Smoking Status: Never smoker Past Alcohol Use History: Rare Past Drug Use History: None Reported - Past Family History Mother Family Medical History: No Reported History Surgical - Exam Vital Signs Temp Pulse Resp BP 98.0 F 66 16 187/94 07/02/24 10:26 07/02/24 10:26 07/02/24 10:26 07/02/24 10:26 - General well developed, well nourished, no distress - Eyes PERRL - ENT normal pinna - Neck no masses - Respiratory normal expansion - Cardiovascular Rhythm: regular - Abdomen Abdomen: soft, non tender Bariatric Assessment & Plan Plan: Patient is gerd is minimal we observe. She will follow-up in 2 months. Bariatric Checklist Checklist: Plan: Checklist: EGD: 1. Hiatal hernia: 2. H. Pylori: HgbA1c: Vitamin D: Smoking: Never smoker Primary care physician referral: SHABANA Hernandez Psychiatry clearance: Cardiology clearance: Sleep study: Diet journal: VTE risk score: VTE risk level: Rehab needs at discharge:
--- NOTE | 2024-07-02 12:18 | P.OP ---
Date of Procedure: 07/02/24 Preoperative Diagnosis: Weight loss Screening colonoscopy Postoperative Diagnosis: Antral gastritis Esophagitis Sliding hiatal hernia Diverticulosis Procedure(s) Performed: EGD Colonoscopy Anesthesia: MAC Surgeon: Marino Womack Pathology: other (Antrum, esophagus) Condition: stable Disposition: PACU Description of Procedure: Patient was placed on the endoscopy table in the lateral position. He received IV sedation. The Gastroflux oropharynx passed in the esophagus and stomach. Scope was then placed through the pylorus. The first and second portion of the duodenum appeared normal. The scope was brought back to the antrum this appeared mildly [place]. A biopsy performed. Scope was then retroflexed and the [place] of the stomach appeared normal. There was a moderate-sized sliding hiatal hernia. The GE junction was at 37 cm. The distal esophagus appeared inflamed and a biopsy performed. The proximal esophagus appeared normal. The scope was withdrawn patient. Next digital rectal exams performed. This revealed no abnormalities. The flexible colonoscope was then placed patient anus passed throughout the entire colon. The ileocecal valve was visualized. The cecum, ascending and transverse colon appeared normal. In the descending sigmoid colon there is moderate diverticular changes. Scope was brought back to the rectum this appeared normal. Scope withdrawn for the patient.
[2024-07-02 15:12] LABS: HCT 42.3 % (37.2-46.3); HGB 13.6 g/dL (12.0-15.0); MCH 29.5 pg (27.0-32.0); MCHC 32.2 g/dL (32.0-37.0); MCV 91.8 FL (80.0-97.0); Mean Platelet Volume 12.9 FL (9.5-12.2); NRBC Per 100 WBC 0 X 10*3/uL (0.00-0.01); Platelet Count 249 X 10*3/uL (140-440); RBC 4.61 X 10*6/uL (4.10-5.20); RDW 11.9 % (11.5-14.5); WBC 7.59 X 10*3/uL (4.50-10.00)
[2024-07-02 15:29] LABS: % Iron Saturation 21.03 (12.00-45.00); ALT 27 U/L (8-44); AST 23 U/L (13-35); Albumin 4.4 g/dL (3.8-4.9); Albumin/Globulin Ratio 1.57 Ratio (1.60-3.17); Alkaline Phosphatase 84 U/L (41-126); BUN/Creat Ratio 23.17 Ratio (12.00-20.00); Blood Urea Nitrogen 13.9 mg/dL (9.0-27.0); Calcium 9.5 mg/dL (8.7-10.3); Carbon Dioxide 26.4 mmol/L (21.6-31.8); Chloride 103 mmol/L (96-109); Globulin 2.8 g/dL (1.6-3.3); Glucose 105 mg/dL (70-110); Iron 90 UG/DL (50-170); Magnesium 2.2 mg/dL (1.5-2.4); Potassium 4.4 mmol/L (3.5-5.5); Sodium 141 mmol/L (135-145); Total Bilirubin 0.5 mg/dL (0.3-1.2); Total Iron Binding Capacity 428 UG/DL (228-460); Total Protein 7.2 g/dL (6.2-8.2)
[2024-07-03 13:16] LABS: Zinc, Serum 128 ug/dL (60-130)
[2024-07-04 09:16] LABS: Vit B1(Thiamine) 73 ug/L (38-122)
[2024-07-05 08:54] LABS: Vitamin A 97 ug/dL (38-106)
== END ==
LOC: BARWHC3 10:19
PROVIDERS: ATTEND Surgery
DX: K21.00 Gastro-esophageal reflux disease with esophagitis, without bleeding (principal); K57.30 Diverticulosis of large intestine without perforation or abscess without bleeding; K44.9 Diaphragmatic hernia without obstruction or gangrene
CPT/HCPCS: 80053; 82306; 82607; 82728; 82746; 83540; 83550; 83735; 84255; 84425; 84443; 84590; 84630; 85027; 99211

== ENCOUNTER → 2024-07-02 | Outpatient (CLI) | payer BC | END | disposition home or self-care (01) | LOC: LABWHC1 10:59 | PROVIDERS: ATTEND Surgery | DX: Z53.9 Procedure and treatment not carried out, unspecified reason (principal) ==